=== PATIENT | male | born 1985 ===

== ENCOUNTER 2020-06-30 11:08 | Emergency (ER) | payer MEDICAID, SELFPAY ==
[2020-06-30 11:34] VITALS: BP 123/62; PULSE 80; RESP 18; TEMP 36.9; O2SAT 97; BMI 29.8
[2020-06-30 12:06] LABS: Glucose Urine UA NEG (NEG); Leukocyte Esterase Urine NEG (NEG); Nitrite Urine NEG (NEG); PH 8.5 (5.0-8.0); Urine Blood TRACE (NEG); Urine Ketones NEG (NEG); Urine Protein NEG (NEG-TRACE)
[2020-06-30] MEDS: Ibuprofen 600 MG TABLET PO (12:06)
[2020-06-30 12:07] LABS: Appearance Urine CLEAR; Color Urine YELLOW
--- NOTE | 2020-06-30 12:22 | ED.BACK ---
HPI - Back Pain/Injury General Chief Complaint: Back Pain/Injury Stated Complaint: BACK PAIN Time Seen by Provider: 06/30/20 11:32 Source: patient Mode of arrival: ambulatory Limitations: no limitations History of Present Illness HPI Narrative: 35-year-old male here with left lower back pain times several days. No injury or trauma. Pain radiates to the left hip. No numbness or tingling. No saddle anesthesia. No bowel or bladder incontinence. No fevers or chills. The patient is ambulatory. Pain is worsened with movement and standing. MD elicited complaint: back pain Related Data Previous Rx's Medication Instructions Recorded cyclobenzaprine 10 mg PO TID PRN #10 tab 06/30/20 lidocaine [Lidoderm] 1 patch TOPICAL DAILY #15 ea 06/30/20 naproxen 500 mg PO BID PRN #20 tab 06/30/20 Allergies Allergy/AdvReac Type Severity Reaction Status Date / Time No Known Allergies Allergy Verified 06/30/20 11:37 Review of Systems Review of Systems: Yes all other systems are reviewed and are negative Constitutional: Constitutional: Reports no additional constitutional complaints, Denies body ache(s), Denies chills, Denies fever(s), Denies headache(s) and Denies weakness Eyes: Eyes: Reports no additional eye complaints and Denies change in vision ENT: Reports system reviewed and no additional complaints, except as documented, Denies dizziness, Denies headache(s), Denies nasal congestion, Denies nasal discharge and Denies neck pain Cardiovascular: Cardiovascular: Reports no additional cardiovascular complaints, Denies chest pain, Denies leg edema and Denies dyspnea Respiratory: Respiratory: Reports no additional respiratory complaints, Denies cough and Denies dyspnea Gastrointestinal: Gastrointestinal: Reports no additional gastrointestinal complaints, Denies abdominal pain, Denies diarrhea, Denies nausea and Denies vomiting Genitourinary: Genitourinary: Denies urinary incontinence Musculoskeletal: Musculoskeletal: Reports no additional musculoskeletal complaints, Reports back pain, Denies arthralgias, Denies joint swelling, Denies neck pain, Denies numbness and Denies tingling Integumentary/Breasts: Skin/Breast: Reports system reviewed and no additional complaints, except as docu and Denies rash Neurologic: Reports system reviewed and no additional complaints, except as documented, Denies Abnormal speech present, Denies dizziness, Denies headache(s), Denies numbness, Denies tingling and Denies weakness PMFSH Past Medical History Attestation statement: The following information was validated with the patient. Source: old records reviewed and nursing notes reviewed Medical History No known health problems Social History Social History Advance Directives: No Advance Directives Information Provided: No Physical Exam Vital Signs: Vital Signs: Last Vital Signs Temp 98.4 F 06/30/20 11:34 Pulse 80 06/30/20 11:34 Resp 18 06/30/20 11:34 BP 123/62 06/30/20 11:34 Pulse Ox 97 06/30/20 11:34 Body Mass Index 29.8 Const: General: cooperative, healthy appearing, comfortable and no acute distress Orientation/consciousness: patient oriented x3 Limitations: no limitations HENMT: Head: Yes normal to inspection Ears: hearing grossly normal bilaterally General nose exam: Normal external nose present Face and sinus: Yes normal facial exam Mouth: Normal oral and palatal mucosa present Throat: Yes posterior oropharynx normal Eyes: General: appearance normal, both eyes and all related structures Pupils: Equal, round and reactive pupils present Neck: Neck: Yes normal visual inspection Chest: Chest palpation & inspection: normal inspection of the chest Resp: Effort & Inspection: normal respiratory effort Auscultation: clear to auscultation bilaterally Cardio: Rate: regular rate Rhythm: regular rhythm Peripheral pulses: Peripheral pulses 2+ throughout GI: Inspection: Yes normal to inspection Palpation (GI): Soft to palpation and nontender Auscultation: normal bowel sounds : General: Yes no CVA tenderness Back/Spine/Pelvis: Other: Moderate tenderness over lumbar soft tissue area with no midline tenderness, step-offs or deformities. Back: no CVA tenderness Thoracic/Lumbar Spine: thoracic and lumbar spine normal to inspection Sacroiliac joints: on the left (Mildly tender) Skin: General skin exam: no rashes or lesions noted Neuro: General: patient oriented x3, no focal motor deficits and normal sensation to monofilament Cranial nerves: Yes Equal, round and reactive pupils present Cognition (Neuro): normal cognition Speech: No Abnormal speech present Gait exam (Neuro): Normal gait present Motor exam (neuro): 5/5 motor strength present throughout Extrem: General: Yes normal to inspection Course Course Course Narrative: 35 yo male here with left lower back pain, atraumatic x several days. UA unremarkable. Likely lumbar strain versus sacroilitis. No neurological deficits. No red flag symptoms. Improved with NSAIDs in the emergency department. Will send home with supportive care, follow up with primary care doctor if no improvement in symptoms after several days. Reviewed worrisome signs and symptoms of when to return to the emergency department. Comfortable discharge home. MDM - Back Pain/Injury Medical Records Attestation: I reviewed the patient's medical records. Lab Data Attestation: I reviewed the patient's lab results. Labs: Lab Results 06/30/20 Range/Units 11:51 Urine Color YELLOW Urine Appearance CLEAR Urine pH 8.5 H (5.0-8.0) Ur Specific [place] 1.020 (1.005-1.025) Urine Protein NEG (NEG-TRACE) MG/DL Urine Glucose (UA) NEG (NEG) MG/DL Urine Ketones NEG (NEG) MG/DL Urine Blood TRACE (NEG) Urine Nitrite NEG (NEG) Ur Leukocyte Esterase NEG (NEG) Urine RBC 1-4 (0) /HPF Urine WBC 0 (0-4) /HPF Ur Squamous Epith Cells NONE /LPF Urine Bacteria NONE /LPF Discharge Plan Discharge Clinical Impression: Strain of lumbar region Patient Disposition: Home, Self-Care Instructions: Low Back Strain (ED), Lower Back Exercises (ED) Additional Instructions: Heat or ice Gentle stretching No heavy lifting or bending Prescriptions: New naproxen 500 mg tablet 500 mg PO BID PRN (Reason: pain) Qty: 20 RF: 0 cyclobenzaprine 10 mg tablet 10 mg PO TID PRN (Reason: muscle spasm) Qty: 10 RF: 0 lidocaine [Lidoderm] 5 % adhesive patch,medicated 1 patch topical DAILY Qty: 15 RF: 0 Referrals: Vinicius Shell MD [Primary Care Provider] - 2 days Stand Alone Forms: Work/School Release Interventions: ED Discharge Assessment Last Done: 06/30/20 13:17 Discharge Date/Time: 06/30/20 13:17
[2020-06-30 12:34] LABS: WBC Urine 0 /HPF (0-4)
== END 2020-06-30 13:17 | disposition home or self-care (01) ==
PROVIDERS: Nurse Practitioner Family; Emergency Provider Emergency Medicine Emergency Medical Services; PCP Internal Medicine
DX: S39.012A Strain of muscle, fascia and tendon of lower back, initial encounter (principal); X58.XXXA Exposure to other specified factors, initial encounter; Y93.9 Activity, unspecified; Y92.9 Unspecified place or not applicable; Y99.9 Unspecified external cause status
CPT/HCPCS: 81001; 81003; 99283; J1885

== ENCOUNTER 2020-10-03 09:20 | Emergency (ER) | payer MEDICAID, SELFPAY ==
[2020-10-03 09:38] VITALS: BP 129/79; PULSE 101; RESP 16; TEMP 36.9; O2SAT 96; BMI 30.7
--- NOTE | 2020-10-03 10:17 | ED.URI ---
HPI - URI/Sore Throat General Chief Complaint: Upper Respiratory Symptoms <MARCOS West Last Filed: 10/03/20 10:22> Stated Complaint: SORE THROAT <MARCOS West Last Filed: 10/03/20 10:22> Time Seen by Provider: 10/03/20 09:37 <MARCOS West Last Filed: 10/03/20 10:22> Source: patient <MARCOS West Last Filed: 10/03/20 10:22> Mode of arrival: ambulatory <MARCOS West Last Filed: 10/03/20 10:22> History of Present Illness HPI Narrative: 35-year-old male with no significant past medical history presenting to the ED complaining of sore throat, painful swallowing, subjective fever, nausea, headache since yesterday. Admits symptoms feels similar to prior strep pharyngitis. Denies ear pain, cough, chest pain or shortness of breath, abdominal pain, recent travel, sick contacts <MARCOS West Last Filed: 10/03/20 10:22> MD elicited complaint: sore throat <MARCOS West Last Filed: 10/03/20 10:22> Related Data Home Medications: Previous Rx's Medication Instructions Recorded cyclobenzaprine 10 mg PO TID PRN #10 tab 06/30/20 lidocaine [Lidoderm] 1 patch TOPICAL DAILY #15 ea 06/30/20 naproxen 500 mg PO BID PRN #20 tab 06/30/20 amoxicillin-pot clavulanate 1 tab PO Q12H 7 Days #14 tab 10/03/20 [Augmentin] <MARCOS West Last Filed: 10/03/20 10:22> Allergies/Adverse Reactions: Allergies Allergy/AdvReac Type Severity Reaction Status Date / Time No Known Allergies Allergy Verified 06/30/20 11:37 <MARCOS West Last Filed: 10/03/20 10:22> Review of Systems Review of Systems: Constitutional: +subj Fever, No Chills ENT/Mouth: No Ear Pain, No Nasal Congestion, No Sinus Pain, No Hoarseness, + sore throat, No Rhinorrhea, No Swallowing Difficulty Cardiovascular: No Chest Pain, No SOB Respiratory: No Cough, No Sputum, No Wheezing Gastrointestinal: + Nausea, No Vomiting, No Diarrhea, No Abdominal pain Musculoskeletal: No joint pain, No Myalgias, No Joint Swelling Skin: No Skin Lesions, No rash Neuro: No Weakness, + headache <MARCOS West - Last Filed: 10/03/20 10:22> Yes all other systems are reviewed and are negative <MARCOS West - Last Filed: 10/03/20 10:22> [facility] Past Medical History Attestation statement: The following information was validated with the patient. <MARCOS West - Last Filed: 10/03/20 10:22> Medical History: Medical History (Updated 10/04/20 @ 00:02 by Shima Lozano) No known health problems <MARCOS West - Last Filed: 10/03/20 10:22> Surgical History: Surgical History (Updated 10/03/20 @ 09:40 by Jeanie Colby) H/O shoulder surgery <MARCOS West - Last Filed: 10/03/20 10:22> Social History Social History: Social History Smoked in Last 30 Days: No Use of substances other than those prescribed or required for medical reasons: No Advance Directives: No Advance Directives Information Provided: No <MARCOS West - Last Filed: 10/03/20 10:22> Physical Exam Vital Signs: Vital Signs: Last Vital Signs Temp 98.5 F 10/03/20 09:38 Pulse 101 H 10/03/20 09:38 Resp 16 10/03/20 09:38 BP 129/79 10/03/20 09:38 Pulse Ox 96 10/03/20 09:38 Body Mass Index 30.7 <MARCOS West - Last Filed: 10/03/20 10:22> Vital Signs: Last Vital Signs Temp 98.5 F 10/03/20 09:38 Pulse 101 H 10/03/20 09:38 Resp 16 10/03/20 09:38 BP 129/79 10/03/20 09:38 Pulse Ox 96 10/03/20 09:38 Body Mass Index 30.7 <Richi Allison MD - Last Filed: 10/27/20 15:12> Const: General: cooperative, healthy appearing, comfortable and no acute distress <MARCOS West - Last Filed: 10/03/20 10:22> Orientation/consciousness: patient oriented x3 <MARCOS West - Last Filed: 10/03/20 10:22> Limitations: no limitations <MARCOS West - Last Filed: 10/03/20 10:22> HENMT: Head: Yes normal to inspection and Yes atraumatic <MARCOS West - Last Filed: 10/03/20 10:22> Ears: hearing grossly normal bilaterally, external ears normal and TM's normal bilaterally <Lexus Casiano HI - Last Filed: 10/03/20 10:22> General nose exam: Normal external nose present and Normal nares present <Lexus Casiano HI - Last Filed: 10/03/20 10:22> Face and sinus: Yes normal facial exam <MARCOS West Last Filed: 10/03/20 10:22> Mouth: Normal oral and palatal mucosa present <MARCOS West - Last Filed: 10/03/20 10:22> Throat: Yes uvula midline, Yes abnormal tonsil (Bilateral tonsillar erythema, swelling and exudates), No peritonsillar mass, No uvula laterally displaced and No uvular edema <Lexus Casiano HI - Last Filed: 10/03/20 10:22> Eyes: General: appearance normal, both eyes and all related structures <MARCOS West - Last Filed: 10/03/20 10:22> EOM: EOMs intact bilaterally <MARCOS West - Last Filed: 10/03/20 10:22> Neck: Neck: Yes normal visual inspection, Yes no meningeal signs, Yes supple, No anterior neck swelling and Yes lymphadenopathy <Lexus Casiano HI - Last Filed: 10/03/20 10:22> Resp: Effort & Inspection: normal respiratory effort, not labored, no nasal flaring, no stridor and not tachypneic <MARCOS West - Last Filed: 10/03/20 10:22> Cardio: Rate: regular rate <MARCOS West - Last Filed: 10/03/20 10:22> Skin: Rashes: no rashes <MARCOS West - Last Filed: 10/03/20 10:22> Wounds: no wounds <MARCOS West - Last Filed: 10/03/20 10:22> Neuro: General: patient oriented x3 and no meningeal signs <MARCOS West - Last Filed: 10/03/20 10:22> Gait exam (Neuro): Normal gait present <MARCOS West - Last Filed: 10/03/20 10:22> Extrem: General: Yes normal to inspection <MARCOS West - Last Filed: 10/03/20 10:22> Course Course Course Narrative: I have reviewed the chart <Richi Allison MD - Last Filed: 10/27/20 15:12> MDM - URI/Sore Throat MDM Narrative Medical decision making narrative: On exam mildly tachycardic with heart rate of 101, NAD/nontoxic appearing, physical exam consistent with strep pharyngitis, patient in no respiratory distress evidence of [employer]. <MARCOS West - Last Filed: 10/03/20 10:22> Lab Data Labs: Lab Results 10/03/20 Range/Units 10:14 S. pyogenes GrpA SCOTTY Negative (Negative) <MARCOS West - Last Filed: 10/03/20 10:22> Lab Results 10/03/20 Range/Units 10:14 S. pyogenes GrpA SCOTTY Negative (Negative) <Richi Allison MD - Last Filed: 10/27/20 15:12> Discharge Plan Discharge Clinical Impression: Acute streptococcal pharyngitis <MARCOS West - Last Filed: 10/03/20 10:22> Patient Disposition: Home, Self-Care <MARCOS West - Last Filed: 10/03/20 10:22> Instructions: Strep Throat (ED) <MARCOS West - Last Filed: 10/03/20 10:22> Additional Instructions: You have strep throat, Augmentin is an antibiotic, take as prescribed Take Tylenol Motrin at home for pain/swelling and fever If her symptoms persist or worsen, your unable to eat or drink/swallow, or fevers unresolved with Tylenol/Motrin please return to the ED Follow-up with her doctor <MARCOS West - Last Filed: 10/03/20 10:22> Prescriptions: New amoxicillin-pot clavulanate [Augmentin] 875-125 mg tablet 1 tab PO Q12H 7 Days Qty: 14 RF: 0 No Action naproxen 500 mg tablet 500 mg PO BID PRN (Reason: pain) Qty: 20 RF: 0 cyclobenzaprine 10 mg tablet 10 mg PO TID PRN (Reason: muscle spasm) Qty: 10 RF: 0 lidocaine [Lidoderm] 5 % adhesive patch,medicated 1 patch topical DAILY Qty: 15 RF: 0 <MARCOS West - Last Filed: 10/03/20 10:22> Referrals: Vinicius Shell MD [Primary Care Provider] - 1 week <MARCOS West - Last Filed: 10/03/20 10:22> Stand Alone Forms: Work/School Release <MARCOS West - Last Filed: 10/03/20 10:22> Interventions: ED Discharge Assessment Last Done: 10/03/20 10:49 <MARCOS West - Last Filed: 10/03/20 10:22> Discharge Date/Time: 10/03/20 10:49 <MARCOS West - Last Filed: 10/03/20 10:22>
[2020-10-03 10:40] LABS: IDNOW Serial# 9DD0AD1C; Strep A Nucleic Acid Negative (Negative)
== END 2020-10-03 10:49 | disposition home or self-care (01) ==
PROVIDERS: Physician Assistant; Emergency Provider Emergency Medicine; PCP Internal Medicine
DX: J02.0 Streptococcal pharyngitis (principal); R00.0 Tachycardia, unspecified
CPT/HCPCS: 36415; 87651; 99283

== ENCOUNTER 2021-01-18 16:55 | Emergency (ER) | payer MEDICAID, SELFPAY ==
--- NOTE | ~2021-01-18 | XR_ITS ---
EXAMINATION: XR HAND, LEFT CLINICAL INFORMATION: Pain COMPARISON: None TECHNIQUE: PA, lateral, and oblique views of the left hand. FINDINGS: There is minimal soft tissue calcification seen at the second digit metacarpophalangeal joint. No fracture or dislocation. Alignment is anatomic. Joint spaces are maintained. The soft tissues appear otherwise unremarkable. XR/XR hand LT min 3V IMPRESSION: No acute osseous abnormality. Minimal soft tissue calcification adjacent to the second digit metacarpophalangeal joint. This is of uncertain clinical significance.
[2021-01-18 17:32] VITALS: BP 118/73; PULSE 65; RESP 18; TEMP 36.7; O2SAT 98; BMI 29.8
--- NOTE | 2021-01-18 18:21 | ED_ITS ---
HPI - Extremity Problem General Chief complaint: Extremity Injury, Upper Stated complaint: finger pain Time Seen by Provider: 01/18/21 18:21 Source: patient Mode of arrival: ambulatory Limitations: no limitations History of Present Illness HPI Narrative: Patient been having pain in flexing left index finger for last 1 week since no history of trauma no swelling no fever Related Data Previous Rx's Medication Instructions Recorded cyclobenzaprine 10 mg tablet 10 mg PO TID PRN #10 tab 06/30/20 lidocaine 5 % topical patch 1 patch TOPICAL DAILY #15 ea 06/30/20 (Lidoderm) naproxen 500 mg tablet 500 mg PO BID PRN #20 tab 06/30/20 amoxicillin 875 mg-potassium 1 tab PO Q12H 7 Days #14 tab 10/03/20 clavulanate 125 mg tablet (Augmentin) Allergies Allergy/AdvReac Type Severity Reaction Status Date / Time No Known Allergies Allergy Verified 06/30/20 11:37 Review of Systems Review of Systems: Yes all other systems are reviewed and are negative [facility] Past Medical History Medical History Collar bone fracture Surgical History H/O shoulder surgery Social History Social History Advance Directives: No Advance Directives Information Provided: No Physical Exam Vital Signs: Vital Signs: Last Vital Signs Temp 98.1 F 01/18/21 17:32 Pulse 65 01/18/21 17:32 Resp 18 01/18/21 17:32 BP 118/73 01/18/21 17:32 Pulse Ox 98 01/18/21 17:32 Body Mass Index 29.8 Extrem: Hand/finger images: 1. Tenderness at metacarpophalangeal joint official inflection no swelling noticed MDM - Extremity (Nontraumatic) MDM Narrative Medical decision making narrative: X-ray negative for any pathology clinically patient had trigger finger left index finger advised to have splint patient left the ER without taking the splint or discharge paper Discharge Plan Discharge Clinical Impression: Trigger finger Qualifiers: Trigger finger location: index finger Laterality: left Qualified Code(s): M65.322 - Trigger finger, left index finger Patient Disposition: Home, Self-Care Instructions: Trigger Finger (ED) Additional Instructions: Wear the splint as advised Ibuprofen for pain Prescriptions: No Action naproxen 500 mg tablet 500 mg PO BID PRN (Reason: pain) Qty: 20 RF: 0 cyclobenzaprine 10 mg tablet 10 mg PO TID PRN (Reason: muscle spasm) Qty: 10 RF: 0 lidocaine [Lidoderm] 5 % adhesive patch,medicated 1 patch topical DAILY Qty: 15 RF: 0 amoxicillin-pot clavulanate [Augmentin] 875-125 mg tablet 1 tab PO Q12H 7 Days Qty: 14 RF: 0
== END 2021-01-18 19:14 | disposition home or self-care (01) ==
PROVIDERS: Emergency Provider Internal Medicine
DX: M65.322 Trigger finger, left index finger (principal); M79.645 Pain in left finger(s); Z79.899 Other long term (current) drug therapy
CPT/HCPCS: 73130; 99283

== ENCOUNTER 2021-11-19 12:54 | Emergency (ER) | payer MEDICAID, SELFPAY ==
[2021-11-19 15:23] VITALS: BP 125/59; PULSE 62; RESP 16; TEMP 36.9; O2SAT 99; BMI 25.8
[2021-11-19 15:58] LABS: Strep A Nucleic Acid Negative (Negative)
--- NOTE | 2021-11-19 16:10 | ED.GENADULT ---
HPI - General Adult General Chief complaint: General Medical Stated complaint: sore throat Time Seen by Provider: 11/19/21 14:48 Source: patient Mode of arrival: ambulatory Limitations: no limitations History of Present Illness HPI narrative: Patient is a 36 year old male presenting to the emergency department today with a sore throat. Patient states that he has been having 3 days of a sore throat and pain on the roof of his mouth. Patient denies any dizziness, lightheadedness, abdominal pain, nausea, vomiting, fever, chills, blurry vision, double vision, loss of vision, chest pain, difficulty breathing, shortness of breath, back pain, night sweats, pain with urination, increased urinary frequency, increased urinary urgency, blood in his urine or stool, syncope or a near syncopal episode, recent trauma or falls, bowel incontinence, bladder incontinence, bowel retention, bladder retention, or any other complaints at this time. Onset (ago): day(s) (3) Radiation: non-radiation Severity: mild Severity scale (1-10): 3 Quality: dull Relieving factors: none Exacerbating factors: none Associated symptoms: denies other symptoms Treatments prior to arrival: none Related Data Previous Rx's Medication Instructions Recorded cyclobenzaprine 10 mg tablet 10 mg PO TID PRN muscle spasm #10 06/30/20 tabs lidocaine 5 % topical patch 1 patch topical DAILY #15 ea 06/30/20 (Lidoderm) naproxen 500 mg tablet 500 mg PO BID PRN pain #20 tabs 06/30/20 amoxicillin 875 mg-potassium 1 tab PO Q12H 7 days #14 tabs 10/03/20 clavulanate 125 mg tablet (Augmentin) lidocaine HCl 2 % mucosal solution 1.25 ml mucous membrane TID PRN 11/19/21 (Lidocaine Viscous) pain #100 mL penicillin V potassium 500 mg 500 mg PO BID 10 days #20 tabs 11/19/21 tablet Allergies Allergy/AdvReac Type Severity Reaction Status Date / Time No Known Allergies Allergy Verified 11/19/21 15:23 Review of Systems Constitutional: Constitutional: Reports no additional constitutional complaints, Denies chills, Denies fever(s) and Denies night sweats Eyes: Eyes: Reports no additional eye complaints, Denies blurry vision, Denies change in vision, Denies diplopia, Denies eye discharge, Denies loss of vision and Denies eye pain ENT: Denies dizziness and Reports sore throat Cardiovascular: Cardiovascular: Reports no additional cardiovascular complaints, Denies chest pain, Denies lightheadedness, Denies Loss of Consciousness and Denies dyspnea Respiratory: Respiratory: Reports no additional respiratory complaints and Denies dyspnea Gastrointestinal: Gastrointestinal: Reports no additional gastrointestinal complaints, Denies abdominal pain, Denies melena, Denies hematochezia, Denies change in bowel habits and Denies change in stool character Genitourinary: Genitourinary: Reports no additional male genitourinary complaints, Denies hematuria, Denies oliguria, Denies difficulty urinating, Denies dysuria, Denies urinary frequency, Denies urinary hesitancy, Denies urinary incontinence and Denies urinary urgency Musculoskeletal: Musculoskeletal: Reports no additional musculoskeletal complaints, Denies numbness and Denies tingling Neurologic: Denies dizziness, Denies loss of vision, Denies numbness and Denies tingling Psychiatric: Psychiatric: Reports no additional psychiatric complaints Endocrine: Endocrine: Reports no additional endocrine complaints Hematologic/Lymphatic: Hematologic/Lymphatic: Reports no additional hematologic/lymphatic complaints Allergic/Immunologic: Allergic/Immunologic: Reports no additional allergic/immunologic complaints PMFSH Past Medical History Attestation statement: The following information was validated with the patient. Source: old records reviewed Medical History Collar bone fracture Surgical History H/O shoulder surgery Social History Social History Advance Directives: No Advance Directives Information Provided: No Physical Exam ED Vital Signs: Vital Signs - 24 hr 11/19/21 15:23 Temperature 98.5 F Pulse Rate 62 Respiratory Rate 16 Blood Pressure 125/59 L Pulse Oximetry 99 Oxygen Delivery Method Room Air BMI result Body Mass Index 25.8 Const General: cooperative, no acute distress, alert and awake Nutritional Appearance: well nourished Orientation/consciousness: patient oriented x3 Limitations: no limitations HENMT Head: Yes normal to inspection and Yes atraumatic Ears: hearing grossly normal bilaterally and external ears normal General nose exam: Normal external nose present, no nasal discharge noted and no epistaxis Face and sinus: Yes normal facial exam, No abrasion and No laceration Mouth: Normal oral and palatal mucosa present, no drooling and no muffled voice Throat: Yes other (posterior erythema) Eyes General: appearance normal, both eyes and all related structures Periorbital: periorbital findings normal Eyelids: Yes eyelids normal Conjunctivae: conjunctivae normal Pupils: Equal, round and reactive pupils present EOM: EOMs intact bilaterally Neck Neck: Yes normal visual inspection, Yes full ROM and Yes no lymphadenopathy Chest Chest palpation & inspection: normal inspection of the chest Resp Effort & Inspection: normal respiratory effort and able to speak in complete sentences Auscultation: clear to auscultation bilaterally Cardio Rate: regular rate Rhythm: regular rhythm GI Inspection: Yes normal to inspection Neuro General: patient oriented x3 and moves all extremities Cranial nerves: Yes Equal, round and reactive pupils present Cognition (Neuro): normal cognition Motor exam (neuro): 5/5 motor strength present throughout Sensory Exam: Normal double simultaneous stimulation for sensation Coordination: [id number] test normal Extrem General: Yes normal to inspection, Yes full ROM and Yes capillary refill normal Psych Appearance: grossly normal Mental Status: mental status grossly normal Affect: normal affect Attitude: cooperative Thought process: Normal thought process present Thought content: Normal thought content present Insight: Good insight present (Psych) Medical Decision Making MDM Narrative Medical decision making narrative: Patient is a 36 year old male presenting to the emergency department today with a sore throat. Patient's physical exam showed posterior pharyngeal erythema but was otherwise unremarkable. Patient's rapid strep, COVID-19 and influenza swabs were negative. I explained my physical exam findings as well as all test results to the patient. I answered all questions asked by the patient. I stressed the importance of the patient taking his medication as prescribed. I stressed the importance of the patient following up with his/her primary care provider. I stressed the importance of the patient returning to the emergency department immediately if his symptoms were to worsen or if he were to develop any dizziness, shortness of breath, difficulty breathing, chest pain, blurry vision, loss of vision, nausea, vomiting, abdominal pain, fever, chills, back pain, or any other complaints. Patient verbalized agreement and understanding with this treatment plan and discharge. Differential Diagnosis Differential Diagnosis: sore throat Medical Records Medical records reviewed: Yes I reviewed the patient's medical records. Lab Data Lab results reviewed: Yes I reviewed the patient's lab results. Labs: Lab Results 11/19/21 11/19/21 11/19/21 Range/Units 15:37 15:37 15:37 COVID-19 (MYRA) Negative (Negative) COVID-19 Clin Com See Note Influenza Type A (SCOTTY) Negative (Negative) Influenza Type B (SCOTTY) Negative (Negative) Influenza A & B Note See Note S. pyogenes GrpA SCOTTY Negative (Negative) Discharge Plan Discharge Clinical Impression: Pharyngitis Patient Disposition: Home, Self-Care Instructions: Pharyngitis (ED) Additional Instructions: Follow up with your primary care provider. Return to the emergency department immediately if your symptoms worsen or if you develop any dizziness, shortness of breath, difficulty breathing, chest pain, blurry vision, loss of vision, nausea, vomiting, abdominal pain, fever, chills, back pain, or any other complaints. Prescriptions: New penicillin V potassium 500 mg tablet 500 mg PO BID 10 Days Qty: 20 0RF lidocaine HCl [Lidocaine Viscous] 2 % solution 1.25 ml mucous membrane TID PRN (Reason: pain) Qty: 100 0RF Rx Instructions: Swish around in mouth, spit out. No Action naproxen 500 mg tablet 500 mg PO BID PRN (Reason: pain) Qty: 20 0RF cyclobenzaprine 10 mg tablet 10 mg PO TID PRN (Reason: muscle spasm) Qty: 10 0RF lidocaine [Lidoderm] 5 % adhesive patch,medicated 1 patch topical DAILY Qty: 15 0RF Rx Instructions: leave on most painful area for up to 12 hrs amoxicillin-pot clavulanate [Augmentin] 875-125 mg tablet 1 tab PO Q12H 7 Days Qty: 14 0RF Referrals: Vinicius Shell MD [Primary Care Provider] - Print Language: Romanian
[2021-11-19 16:27] LABS: COVID-19 Test Negative (Negative); IDNOW Serial# 16C4AD1C; Influenza A Negative (Negative); Influenza B2 Negative (Negative)
== END 2021-11-19 23:27 | disposition home or self-care (01) ==
PROVIDERS: Emergency Medicine; Emergency Provider Internal Medicine; PCP Internal Medicine
DX: J02.9 Acute pharyngitis, unspecified (principal); Z20.822 Contact with and (suspected) exposure to COVID-19
CPT/HCPCS: 87502; 87635; 87651; 99281; 99283

== ENCOUNTER 2022-04-07 11:07 | Emergency (ER) | payer MEDICAID, SELFPAY ==
--- NOTE | ~2022-04-07 | XR_ITS ---
EXAMINATION: XR ANKLE, RIGHT CLINICAL INFORMATION: Injury, medial and lateral swelling. Pain. COMPARISON: None TECHNIQUE: AP, lateral, and mortise views of the right ankle. FINDINGS: Medial and lateral ankle soft tissue swelling. There is medial malleolar fracture, with multiple displaced osseous fragments distal to the malleolus. There appears to be osseous fragments along the medial aspect of the medial malleolus as well. There are multiple ossifications seen along the posterior malleolus and the posterior aspect the tibiotalar joint. A posterior malleolar fracture cannot be excluded. Small ossific fragments adjacent the lateral malleolus, raise concern for fracture fragments, of indeterminate age. Talar dome appears intact. Anterior calcaneus process, fifth metatarsal base appears intact. XR/XR ankle RT min 3V IMPRESSION: Medial malleolar fracture, with multiple displaced osseous fragments. Small ossifications adjacent the lateral malleolus raises concern for sequela of fracture, of indeterminate age. Ossifications adjacent to the posterior malleolus of the tibia, raise the possibility of a posterior malleolar fracture. Ossifications along the posterior aspect of the tibiotalar joint, could represent displaced fracture fragments versus loose bodies. Further evaluation with cross-sectional imaging as clinically warranted..
[2022-04-07 11:35] VITALS: BP 119/86; PULSE 66; RESP 16; TEMP 37; O2SAT 98; BMI 25.8
[2022-04-07] MEDS: oxyCODONE HCl Immed Release 5 MG TABLET PO (11:52)
[2022-04-07] MEDS: Ibuprofen 600 MG TABLET PO (11:52)
--- NOTE | 2022-04-07 11:58 | ED.LOWEXIN ---
HPI - Extremity Injury (Lower) General Chief Complaint: Extremity Injury, Lower Stated Complaint: Right foot inj Time Seen by Provider: 04/07/22 11:31 Source: patient Mode of arrival: other (crutches) Limitations: no limitations History of Present Illness HPI Narrative: 36 yo male presenting with right ankle pain and swelling after an injury on 04/05. Patient was working on a car that was on a ramp when the car started to slide back, he tried to stop it with his right leg and his right ankle hyperflexed under leg and he heard a pop noise. He thought he sprained his ankle because he had immediate pain and swelling. He has been wrapping and [place] and using crutches. He is unable to bear any weight. He reports pain with any range of motion of the ankle and foot. He denies any numbness or tingling. He reports dependent bruising at the base of his heel and ongoing swelling. No other injuries. MD complaint: ankle injury Onset (ago): day(s) (3) Injury: Right: ankle Type of Injury: hyperflexion Place: work Severity: severe Severity scale (1-10): 8 Relieving factors: immobilization Exacerbating factors: weight bearing, movement and palpation Associated symptoms: snap/pop sensation and unable to bear weight Other symptoms: none Treatments prior to arrival: bandage Related Data Previous Rx's Medication Instructions Recorded cyclobenzaprine 10 mg tablet 10 mg PO TID PRN muscle spasm #10 06/30/20 tabs lidocaine 5 % topical patch 1 patch topical DAILY #15 ea 06/30/20 (Lidoderm) naproxen 500 mg tablet 500 mg PO BID PRN pain #20 tabs 06/30/20 amoxicillin 875 mg-potassium 1 tab PO Q12H 7 days #14 tabs 10/03/20 clavulanate 125 mg tablet (Augmentin) lidocaine HCl 2 % mucosal solution 1.25 ml mucous membrane TID PRN 11/19/21 (Lidocaine Viscous) pain #100 mL penicillin V potassium 500 mg 500 mg PO BID 10 days #20 tabs 11/19/21 tablet oxycodone 5 mg tablet 5 mg PO Q6H PRN severe pain (scale 04/07/22 score 7-10) #10 tabs Allergies Allergy/AdvReac Type Severity Reaction Status Date / Time No Known Allergies Allergy Verified 11/19/21 15:23 Review of Systems Review of Systems: Constitutional: No Fever, No Chills Cardiovascular: No Chest Pain, No SOB, + Edema Respiratory: No Cough, No Sputum, No Wheezing, No dyspnea Gastrointestinal: No Nausea, No Vomiting, No Diarrhea, No abdominal Pain Musculoskeletal: +joint pain, + Myalgias Skin: No Skin Lesions, No rash Neuro: No Weakness, No Numbness, No Headache Psych: No Anxiety/Panic, No Depression Heme/Lymph: + Bruising, No Lymphadenopathy PMFSH Past Medical History Medical History Collar bone fracture Surgical History H/O shoulder surgery Social History Social History Advance Directives: No Advance Directives Information Provided: No Physical Exam Vital Signs: Vital Signs: Last Vital Signs Temp 98.6 F 04/07/22 11:35 Pulse 66 04/07/22 11:35 Resp 16 04/07/22 11:35 BP 119/86 04/07/22 11:35 Pulse Ox 98 04/07/22 11:35 O2 Del Method 04/07/22 11:35 BMI result Body Mass Index 25.8 Appearance: Alert. Oriented X3. No acute distress. HEENT: normal inspection CVS: Normal heart rate and rhythm. Pulses normal. Respiratory: No respiratory distress. Skin: Skin warm and dry. Normal skin color. Normal skin turgor. No rashes. Extremities: Right ankle with diffuse, moderate swelling bilaterally with dependent ecchymosis at the base of calcaneus. Tenderness throughout the ankle with pain with plantar flexion and dorsiflexion. Foot is warm and well perfused, neurovascularly intact distally. Neuro: Oriented X 3. No motor deficit. No sensory deficit. Gait not tested due to pain Course Course Course Narrative: 36-year-old male presents to the ER for evaluation of right ankle pain and swelling after a hyperflexion injury at work 3 days ago. Clinical presentation and examination are concerning for acute fracture. X-rays are pending. Pain meds ordered. Reevaluation(s) Reevaluation #1: XR showing - Medial malleolar fracture, with multiple displaced osseous fragments. ? Small ossifications adjacent the lateral malleolus raises concern for sequela of fracture, of indeterminate age. ? Ossifications adjacent to the posterior malleolus of the tibia, raise the possibility of a posterior malleolar fracture. ? Ossifications along the posterior aspect of the tibiotalar joint, could represent displaced fracture fragments versus loose bodies. ? Further evaluation with cross-sectional imaging as clinically warranted. Results discussed with Pamela from Orthopedics. Need for surgery to be determined on evaluation in the office. Will place a splint and discharged pain control plan to follow-up with ortho. Patient agrees with plan. Reevaluation #2: Splint placed by nurse in adequate position. Patient is comfortable. We again discussed the results of his x-ray and need for follow-up with Ortho. Patient agrees with plan. Stable for discharge home. Medications Administered Discontinued Medications Generic Name Dose Route Start Last Admin Trade Name Freq PRN Reason Stop Dose Admin Ibuprofen 600 mg 04/07/22 11:38 04/07/22 11:52 Ibuprofen 600 Mg Tablet PO 04/07/22 11:39 600 mg ONCE ONE Administration Oxycodone HCl 5 mg 04/07/22 11:38 04/07/22 11:52 Oxycodone Hcl Immed Release 5 Mg Tablet PO 04/07/22 11:39 5 mg ONCE ONE Administration Critical Care Time Critical Care Time Critical Care Time: No Discharge Plan Discharge Clinical Impression: Ankle fracture Patient Disposition: Home, Self-Care Instructions: Ankle Fracture (ED) Additional Instructions: Your x-rays today showed : Medial malleolar fracture, with multiple displaced osseous fragments.? Small ossifications adjacent the lateral malleolus raises concern for sequela of fracture, of indeterminate age.? Ossifications adjacent to the posterior malleolus of the tibia, raise the possibility of a posterior malleolar fracture.? Ossifications along the posterior aspect of the tibiotalar joint, could represent displaced fracture fragments versus loose bodies.? Further evaluation with cross-sectional imaging as clinically warranted.. Wear the applied splint until you are further evaluated by Orthopedics. Call their office on Friday to arrange an appointment. Name and number below. Take the prescribed medications as needed for pain. Prescriptions: New oxycodone 5 mg tablet 5 mg PO Q6H PRN (Reason: severe pain (scale score 7-10)) Qty: 10 0RF Rx Instructions: Partial Fill upon patient request. No Action naproxen 500 mg tablet 500 mg PO BID PRN (Reason: pain) Qty: 20 0RF cyclobenzaprine 10 mg tablet 10 mg PO TID PRN (Reason: muscle spasm) Qty: 10 0RF lidocaine [Lidoderm] 5 % adhesive patch,medicated 1 patch topical DAILY Qty: 15 0RF Rx Instructions: leave on most painful area for up to 12 hrs amoxicillin-pot clavulanate [Augmentin] 875-125 mg tablet 1 tab PO Q12H 7 Days Qty: 14 0RF penicillin V potassium 500 mg tablet 500 mg PO BID 10 Days Qty: 20 0RF lidocaine HCl [Lidocaine Viscous] 2 % solution 1.25 ml mucous membrane TID PRN (Reason: pain) Qty: 100 0RF Rx Instructions: Swish around in mouth, spit out. Referrals: [facility] [place] [facility] [Provider Group] (Medial malleolar fracture, with multiple displaced osseous fragments. Small ossifications adjacent the lateral malleolus raises concern for sequela of fracture, of indeterminate age. Ossifications adjacent to the posterior malleolus of the tibia, raise the possibility of a posterior malleolar fracture. Ossifications along the posterior aspect of the tibiotalar joint, could represent displaced fracture fragments versus loose bodies. Further evaluation with cross-sectional imaging as clinically warranted..) Stand Alone Forms: Work/School Release
== END 2022-04-07 13:48 | disposition home or self-care (01) ==
PROVIDERS: Emergency Provider Emergency Medicine Emergency Medical Services; PCP Internal Medicine
DX: S82.891A Other fracture of right lower leg, initial encounter for closed fracture (principal); Y29.XXXA Contact with blunt object, undetermined intent, initial encounter; Y93.9 Activity, unspecified; Y92.9 Unspecified place or not applicable; Y99.0 Civilian activity done for income or pay; Z79.899 Other long term (current) drug therapy
CPT/HCPCS: 29515; 73610; 99283

== ENCOUNTER 2022-04-15 08:01 | Outpatient (REF) | payer MEDICAID, SELFPAY | END 2022-04-15 08:02 | disposition home or self-care (01) | LOC: HO.HOSX 08:01 | PROVIDERS: Visit Provider Physician Assistant | DX: Z13.89 Encounter for screening for other disorder (principal) ==

== ENCOUNTER 2022-04-19 07:32 | Outpatient (REF) | payer MEDICAID, SELFPAY ==
--- NOTE | ~2022-04-19 | XR_ITS ---
EXAMINATION: XR ANKLE, RIGHT CLINICAL INFORMATION: Pain in right ankle. COMPARISON: Right ankle series TECHNIQUE: AP, lateral, and mortise views of the right ankle. FINDINGS: Previously noted comminuted fracture of the medial malleolus is redemonstrated. Appearance of the fracture and alignment unchanged. No osseous bridging. Small well-corticated osseous fragments distal to the fibula compatible with ossicles, unchanged. Talocrural joint normally aligned, other than the malalignment related to the medial malleolar fracture along the medial clear space. Persistent slight prominence of the soft tissues laterally, but decreased compared to prior. XR/XR ankle RT min 3V IMPRESSION: Unchanged comminuted medial malleolar fracture.. No evidence of osseous bridging.
== END 2022-04-19 07:33 | disposition home or self-care (01) ==
LOC: HO.HOSX 07:32
PROVIDERS: Visit Provider Physician Assistant
DX: S82.51XA Displaced fracture of medial malleolus of right tibia, initial encounter for closed fracture (principal)
CPT/HCPCS: 73610; 99202

== ENCOUNTER 2022-05-06 11:23 | Outpatient (REF) | payer MEDICAID, SELFPAY | END 2022-05-06 11:24 | disposition home or self-care (01) | LOC: HO.HOSX 11:23 | PROVIDERS: Visit Provider Physician Assistant | DX: M25.571 Pain in right ankle and joints of right foot (principal) | CPT/HCPCS: 73610 ==

== ENCOUNTER 2022-06-03 13:28 | Outpatient (REF) | payer MEDICAID, SELFPAY | END 2022-06-03 13:29 | disposition home or self-care (01) | LOC: HO.HOSX 13:28 | PROVIDERS: Visit Provider Orthopaedic Surgery | DX: Z13.89 Encounter for screening for other disorder (principal) ==

== ENCOUNTER 2022-08-30 00:21 | Emergency (ER) | payer MEDICAID, SELFPAY ==
[2022-08-30 00:35] VITALS: BP 137/76; PULSE 93; RESP 22; TEMP 36.7; O2SAT 97; BMI 24.2
--- NOTE | 2022-08-30 00:41 | ED.BURNSMOKE ---
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 which accidentally spilled on his right dorsum of the foot involving the 2nd and 3rd toe came with ruptured blister no other injuries Related Data Home Medications Medication Instructions Recorded Confirmed ibuprofen 800 mg tablet 800 mg PO Q8H 04/21/22 04/21/22 Previous Rx's Medication Instructions Recorded ibuprofen 600 mg tablet 600 mg PO Q6H PRN pain #30 tabs 08/30/22 silver sulfadiazine 1 % topical 1 appl topical BID #50 grams 08/30/22 cream (Silvadene) Allergies Allergy/AdvReac Type Severity Reaction Status Date / Time No Known Allergies Allergy Verified 05/06/22 14:24 Review of Systems Review of Systems: Yes all other systems are reviewed and are negative [facility] Past Medical History Medical History Collar bone fracture Surgical History H/O shoulder surgery Social History Social History Patient Tobacco Use Status: Current everyday Tobacco user Advance Directives: No Advance Directives Information Provided: Yes Current occupational status: unemployed Physical Exam Vital Signs: Vital Signs: Last Vital Signs Temp 98.1 F 08/30/22 00:35 Pulse 93 08/30/22 00:35 Resp 22 H 08/30/22 00:35 BP 137/76 08/30/22 00:35 Pulse Ox 97 08/30/22 00:35 O2 Del Method Room Air 08/30/22 00:35 BMI result Body Mass Index 24.2 Appearance: Alert. Oriented X3. In moderate distress ENT: Pharynx normal. Oral Mucosa moist Neck: Normal inspection. Neck supple. CVS: Normal heart rate and rhythm. Pulses normal. Respiratory: No respiratory distress. E Skin: Skin warm and dry. Normal skin color. Normal skin turgor. Extremities: No lower extremity edema. Neuro: Oriented X 3. Extrem: Ankle/foot/toe images: 1. Ruptured blister partial-thickness burn the right dorsum of the foot involving 2nd and 3rd digit neurovascular intact Medications Administered Discontinued Medications Generic Name Dose Route Start Last Admin Trade Name Viky PRN Reason Stop Dose Admin Oxycodone HCl 10 mg 08/30/22 01:04 08/30/22 01:21 Oxycodone Hcl Immed Release 5 Mg Tablet PO 08/30/22 01:05 10 mg ONCE ONE Administration Silver Sulfadiazine 1 appl 08/30/22 00:47 08/30/22 01:21 Silver Sulfadiazine 1 % Cream 20 Gm Tube TOPICAL 08/30/22 00:48 1 appl ONCE ONE Administration Discharge Plan Discharge Clinical Impression: Partial thickness burn of toe of right foot Patient Disposition: Home, Self-Care Instructions: Second Degree Burn (ED) Additional Instructions: Local care as advised Apply Silvadene cream twice daily heals completely Ibuprofen for pain Prescriptions: New silver sulfadiazine [Silvadene] 1 % cream 1 appl topical BID Qty: 50 0RF Rx Instructions: apply a 1.5 mm thickness ibuprofen 600 mg tablet 600 mg PO Q6H PRN (Reason: pain) Qty: 30 0RF No Action ibuprofen 800 mg tablet 800 mg PO Q8H Interventions: ED Discharge Assessment Last Done: 08/30/22 01:44 Discharge Date/Time: 08/30/22 01:45
--- OUTSIDE RECORDS SUMMARY | 2022-08-30 00:50 | XMS_ITS | Continuity of Care Document ---
Author Name Unknown Organization [facility] Address Unknown Care Team Providers Care Sausage Canner Name Role Phone Default, PCP Doctor Name Primary Care Physician Unavailable Encounter A2K Date(s): 03/27/22 - 03/27/22 [facility] [address] [place], [place] [address] Encounter Diagnosis Right ankle injury(Discharge Diagnosis) - 03/27/22 Fracture of medial malleolus of right tibia(Discharge Diagnosis) - 03/27/22 Discharge Disposition: Home Attending Physician: Edna Hylton MD Admitting Physician: Edna Hylton MD Allergies, Adverse Reactions, Alerts No Known Medication Allergies Assessment and Plan Extracted from: Title:ED Physician Note Author:Edna Hylton Cla, MD Date:03/27/22 Patient Education Crutches, How to Use Ankle Fracture Follow Up With When Contact Information Liborio Nugent MD, Orthopedic Surgery Within 2 to 4 days (krause) [address] [place] [address]- [phone] ?? Additional Instructions: Assessment/Plan Fracture of medial malleolus of right tibia Right ankle injury Orders: acetaminophen-HYDROcodone, 1 tab(s) PO (oral) Once, Form: Tab ibuprofen, 600 mg PO (oral) Once, Form: Tab Immobilizer Ortho Treatment Instructions Vital Signs Most recent to oldest [Reference Range]: 1 Calculated Height (cm) 167.64 cm (03/27/22 9:03 PM) Measured Weight (kg) 73.7 kg (03/27/22 9:03 PM) Body Mass Index (kg/m2) 26.22 kg/m2 (03/27/22 9:03 PM) Blood Pressure 97/86mmHg (03/27/22 10:40 PM) Peripheral Pulse Rate 67 bpm (03/27/22 10:40 PM) Mean Arterial Pressure [70-100 mmHg] 89. 7 mmHg (03/27/22 10:40 PM) Temperature Oral (DegC) 37.0 DegC 1 (03/27/22 10:40 PM) Temperature Oral (DegF) 98.6 DegF (03/27/22 10:40 PM) 1Result Comment: Calculated by Discern Expert rule Social History Social History Type Response Sex Male Hospital Discharge Instructions Patient Education 03/27/2022 22:41:32 Crutches, How to Use Using Crutches Safely When kids can't put weight on a leg because of injury or surgery, crutches can help them get aroundand stay independent. It's important to use crutches correctly to prevent falls and more injury. Review these tips with your child as a reminder of what you learned during your visit. To help your child use crutches safely: ??? Make sure all pads and telesales specialist on the crutches are securely in place and all hardware is tight. ??? To prevent falls, remove small, loose rugs from floors in the house. Your child should follow these safety guidelines while using crutches: Be sure to: ??? Wear snug, non-slip shoes. Don't wear flip-flops or other loose shoes that can cause falls. ??? Hold your weight up with your hands on the handgrips. Do not put your weight on your armpits. ??? If wearing a backpack, keep it on both shoulders to help with balance. ??? Do not put weight on your injured leg unless your health care provider says it's OK. ??? Check your balance after each step. ??? Have someone around to help if you need it. ??? Take your time and go slowly. ??? Watch out for small pets around your feet. ??? Be especially careful on ramps, uneven ground, and wet surfaces. To walk with crutches: ??? Hold the crutches gently against your sides. ??? Put the crutch tips on the ground ahead of you about 6-12 inches. ??? If you are allowed to put weight on your injured leg, gently step forward with your injured leg. Then push down on the handgrips and step forward with your good leg. ??? If you are not allowed to put weight on your injured leg, push down on the handgrips and step forward with your good leg. ??? Repeat. To sit in a chair: ??? Turn your back to the chair. ??? Walk backward until your legs touch the chair. ??? Hold both crutches on your good side. ??? Reach back with your free arm and grasp armrest or seat. ??? Slowly lower yourself to the chair. To get up from a chair: ??? Hold both crutches on your good side. ??? Sit on the front edge of the chair. ??? Put your free hand on the arm of the chair. Push against it to stand up. ??? Put one crutch under each arm. To use stairs: ??? If there is a handrail, use one crutch and the handrail. (Someone else should carry the other crutch.) ??? If there is no handrail, hold one crutch on each side. ??? To go up stairs: ? Keep your weight on your hands as you lift your good foot onto the first step. ? Bring your crutch(es) and the injured leg to the same step. ??? To go down stairs: ? Stand close to the edge of the step. ? Slowly bring the crutches and your injured leg down one step. ? Keep your weight on the crutches and your hips under your shoulders as you step down. Do notlean forward. ? Bring your good foot down to the same step. ??? Your child has pain, weakness, or a burning sensation in the arms. ??? The crutch tips wear out or the crutches seem loose or broken. ?? 2021 [employer]??.Used and adapted under license by your health care provider. This information is for general use only. For specific medical advice or questions, consult your health patient care. [id number] 03/27/2022 22:41:29 Ankle Fracture Ankle Fracture The ankle joint is made up of the lower (distal) sections of the lower leg bones, called the tibia and fibula, along with a bone in the foot called the talus. An ankle fracture is a break in one, two, or all three of these sections of bone. There are two general types of ankle fractures: ??? Stable fracture. This happens when one of the bones is broken, but the bones of the ankle jointstay in their normal positions. ??? Unstable fracture. This type can include more than one broken bone. It can also happen if the outer bone is broken and the strong tissues that connect bones to each other (ligaments) are also injured at the inner ankle. This type of fracture allows the talus to move out of its normal position. What are the causes? This condition may be caused by: ??? A hard, direct hit to the ankle. ??? Quickly and severely twisting your ankle, often while your foot is planted and the rest of yourbody is moving. ??? Trauma, such as from a car crash or a fall from a height. What increases the risk? The following factors may make you more likely to develop this condition: ??? Being overweight. ??? Participating in sports that involve quick direction changes, as in soccer. ??? Doing high-impact sports such as gymnastics or football. What are the signs or symptoms? Symptoms of this condition include: ??? A tender and swollen ankle. ??? Bruising around your injured ankle. ??? Pain when moving or pressing on your ankle. ??? Trouble walking or using your ankle to support your body weight (putting weight on your ankle). ??? Pain that gets worse when you move your foot or ankle or when you stand. ??? Pain that gets better with rest. How is this diagnosed? An ankle fracture is usually diagnosed with a physical exam and X-rays. You may also have a CT scanor an MRI. How is this treated? Treatment for this condition depends on the type of ankle fracture you have. Stable fractures are treated with a cast, boot, or splint to hold the ankle still and crutches to avoid putting weight on the ankle until the fracture heals. Unstable fractures require surgery to ensure that the bones healproperly. After surgery, you will have a splint. After your incision has healed, your surgeon may give you a cast or a boot. You will not be able to put weight on your injured side for several weeks. After your ankle has healed, you will do physical therapy exercises to improve movement and strength in your ankle. Follow these instructions at home: If you have a boot or splint: ??? Wear the boot or splint as told by your health care provider. Remove it only as told by your health care provider. ??? Loosen it if your toes tingle, become numb, or turn cold and blue. ??? Keep it clean and dry. If you have a cast: ??? Do not put pressure on any part of the cast until it is fully hardened. This may take several hours. ??? Do not stick anything inside the cast to scratch your skin. Doing that increases your risk of infection. ??? Check the skin around the cast every day. Tell your health care provider about any concerns. ??? You may put lotion on dry skin around the edges of the cast. Do not put lotion on the skin underneath the cast. ??? Keep it clean and dry. Bathing ??? Do not take baths, swim, or use a hot tub until your health care provider approves. Ask your health care provider if you may take showers. You may only be allowed to take sponge baths. ??? If the cast, boot, or splint is not waterproof: ??? Do not let it get wet. ??? Cover it with a watertight covering when you take a bath or shower. Managing pain, stiffness, and swelling ??? If directed, put ice on the injured area. To do this: ??? If you have a removable splint or boot, remove it as told by your health care provider. ??? Put ice in a plastic bag. ??? Place a towel between your skin and the bag or between your cast and the bag. ??? Leave the ice on for 20 minutes, 2???3 times a day. ??? Remove the ice if your skin turns bright red. This is very important. If you cannot feel pain, heat, or cold, you have a greater risk of damage to the area. ??? Move your toes often to reduce stiffness and swelling. ??? Raise (elevate) the injured area above the level of your heart while you are sitting or lying down. Activity ??? Do exercises as told by your health care provider. ??? Return to your normal activities as told by your health care provider. Ask your health care provider what activities are safe for you. ??? Do not use the injured limb to support your body weight until your health care provider says that you can. Use crutches as told by your health care provider. General instructions ??? Take uden-[id number] and prescription medicines only as told by your health care provider. ??? Ask your health care provider when it is safe to drive if you have a cast, boot, or splint on your ankle. ??? Do not use any products that contain nicotine or tobacco, such as cigarettes, e-cigarettes, andchewing tobacco. These can delay bone healing. If you need help quitting, ask your health care provider. ??? Keep all follow-up visits. This is important. Contact a health care provider if: ??? You have pain or swelling that gets worse or does not get better with rest or medicine. ??? Your cast gets damaged. Get help right away if: ??? You have severe pain that lasts. ??? You develop new pain or swelling. ??? Your skin or toenails below the injury turn blue or daley, feel cold, become numb, or are less sensitive to the touch. Summary ??? An ankle fracture can be stable or unstable. This is determined after a physical exam and imaging studies such as X-rays, a CT scan, or an MRI. ??? Stable fractures are treated with a cast, boot, or splint to hold the ankle still until the fracture heals. Unstable fractures require surgery to ensure that the bones heal properly. ??? You will not be able to put weight on your injured side for several weeks. ??? Medicines, icing, and raising (elevating) your injured ankle when you are sitting or lying downmay help with pain relief. Follow instructions as told by your health care provider. This information is not intended to replace advice given to you by your health care provider. Make sure you discuss any questions you have with your health care provider. Document Revised: 08/03/2020 Document Reviewed: 08/03/2020 [employer] Patient Education ?? 2021 [employer] Follow Up Care 03/27/2022 21:02:20 With:Liborio Nugent MD, Orthopedic Surgery Address: [address] [place], [place] [address] [place] [address]- [phone] When:2 to 4 days (krause) Patient Care team information Personnel Name: Default , PCP Doctor Name
[2022-08-30] MEDS: Silver Sulfadiazine 1 % Cream 20 GM TUBE 1 APPL TOPICAL (01:21)
[2022-08-30] MEDS: oxyCODONE HCl Immed Release 5 MG TABLET 10 MG PO (01:21)
== END 2022-08-30 01:45 | disposition home or self-care (01) ==
PROVIDERS: Emergency Provider Internal Medicine
DX: T25.231A Burn of second degree of right toe(s) (nail), initial encounter (principal); X12.XXXA Contact with other hot fluids, initial encounter; Y93.89 Activity, other specified; Y92.812 Truck as the place of occurrence of the external cause; Y99.9 Unspecified external cause status; F17.200 Nicotine dependence, unspecified, uncomplicated
CPT/HCPCS: 99283

== ENCOUNTER 2022-09-04 20:53 | Emergency (ER) | payer MEDICAID, SELFPAY ==
[2022-09-04 21:08] VITALS: BP 99/48; PULSE 71; RESP 20; TEMP 37.3; O2SAT 99; BMI 24.2
--- NOTE | 2022-09-04 21:51 | PC.NURSE ---
I elevated pt's foot. Dressed it with bacitracin, a non--adherent dressing, and an lucy wrap to help decrease swelling. Pt is now resting comfortably in bed.
--- NOTE | 2022-09-04 22:02 | ED_ITS ---
HPI - Burn/Smoke Inhalation General Chief complaint: Burn/Smoke Inhalation Stated complaint: antonio on r leg Time Seen by Provider: 09/04/22 21:16 Source: patient Mode of arrival: ambulatory History of Present Illness HPI Narrative: This is a 37-year-old male who spilled hot water onto his right foot on Friday is had increasing pain, swelling and redness since that time. He denies any issues with diabetes and denies any fevers or chills. Related Data Home Medications Medication Instructions Recorded Confirmed ibuprofen 800 mg tablet 800 mg PO Q8H 04/21/22 04/21/22 Previous Rx's Medication Instructions Recorded ibuprofen 600 mg tablet 600 mg PO Q6H PRN pain #30 tabs 08/30/22 silver sulfadiazine 1 % topical 1 appl topical BID #50 grams 08/30/22 cream (Silvadene) amoxicillin 875 mg-potassium 1 tab PO BID 5 days #10 tabs 09/04/22 clavulanate 125 mg tablet Allergies Allergy/AdvReac Type Severity Reaction Status Date / Time No Known Allergies Allergy Verified 05/06/22 14:24 Review of Systems Review of Systems: Pertinent positives and negatives as stated in HPI [facility] Past Medical History Source: nursing notes reviewed Medical History Collar bone fracture Surgical History H/O shoulder surgery Social History Social History Alcohol intake: never Patient Tobacco Use Status: Current everyday Tobacco user Smoked in Last 30 Days: No Use of substances other than those prescribed or required for medical reasons: No Advance Directives: No Advance Directives Information Provided: No Current occupational status: unemployed Physical Exam Vital Signs: Vital Signs: Last Vital Signs Temp 99.2 F 09/04/22 21:08 Pulse 71 09/04/22 21:08 Resp 20 09/04/22 21:08 BP 99/48 L 09/04/22 21:08 Pulse Ox 99 09/04/22 21:08 O2 Del Method Room Air 09/04/22 21:08 BMI result Body Mass Index 24.2 VITAL SIGNS: Reviewed. GENERAL: Well developed, well nourished, in no acute distress. HEAD: Normocephalic/atraumatic EYES: PERRLA, EOMI EARS: Ext canals without abnormality NOSE: Nares patent bilateral OROPHARYNX: no oral lesions noted, posterior pharynx clear NECK: Supple, no adenopathy LUNGS: Normal breath sounds. No adventitious sounds or accessory muscle use. SpO2<99> CARDIOVASCULAR: Regular rate and rhythm without noted murmurs ABDOMEN: Soft, non-tender, non-distended with bowel sounds. MUSCULOSKELETAL: No tenderness, deformities, or effusions noted on gross inspection. EXTREMITIES: No cyanosis, clubbing or edema; RIGHT FOOT: There is an approximate 4.5 cm second-degree burn on the dorsum of right foot that extends onto the dorsal aspect of multiple toes with mild swelling and erythema of the foot itself SKIN: Inspection of the skin reveals no rashes NEUROLOGIC: Alert and oriented x 4. Strength and sensation to light touch were grossly intact x 4. Medical Decision Making Medical Decision Making MDM Narrative: 37-year-old male without history of diabetes and no fever or chills but with erythema and swelling of the right foot status post second-degree burn to the dorsal aspect. Does not appear infected, but will provide prophylactic antibiotics as well application of bacitracin an Steven wrap to help in suspected pressure related pain. Patient will also receive a referral to follow-up with the [facility]. Differential Diagnosis Please see the discussion above External Record Review External record reviewed: Prior outpatient labs Discharge Plan Discharge Clinical Impression: Burn of second degree of right foot, initial encounter Patient Disposition: Home, Self-Care Instructions: Bacitracin (On the skin), High Protein Diet (ED), Second Degree Burn (ED) Additional Instructions: 1. Daily: Cleanse gently with warm soap and water, blot dry, apply copious amounts of antibiotic ointment (this should be available [id number] and any [facility]), apply nonstick gauze and then reapply the Steven wrap. Do not wear shoes which cover the wound. 2. Please complete the antibiotics as prescribed 3. Follow-up with the [facility] for continued management of your wound until it is fully healed. 4. Please follow-up with your primary care provider in the next 1-2 days. Return to the ER for any worsening symptoms. Prescriptions: New amoxicillin-pot clavulanate 875-125 mg tablet 1 tab PO BID 5 Days Qty: 10 0RF No Action silver sulfadiazine [Silvadene] 1 % cream 1 appl topical BID Qty: 50 0RF Rx Instructions: apply a 1.5 mm thickness ibuprofen 600 mg tablet 600 mg PO Q6H PRN (Reason: pain) Qty: 30 0RF ibuprofen 800 mg tablet 800 mg PO Q8H Referrals: Vinicius Shell MD [Primary Care Provider] - [facility] [Outside] (2nd degree wound to right foot dorsum.)
[2022-09-04] MEDS: Bacitracin Oint 0.9 GM PACKET 1 APPL TOPICAL (22:05)
[2022-09-04] MEDS: Amoxicillin/Potassium Clav 875 MG TABLET PO (22:15)
[2022-09-04] MEDS: Ibuprofen 400 MG TABLET PO (22:21)
[2022-09-04] MEDS: Acetaminophen 325 MG TABLET 975 MG PO (22:21)
== END 2022-09-04 22:24 | disposition home or self-care (01) ==
PROVIDERS: Emergency Provider Student in an Organized Health Care Education/Training Program; PCP Internal Medicine
DX: T25.221A Burn of second degree of right foot, initial encounter (principal); T31.0 Burns involving less than 10% of body surface; M79.671 Pain in right foot; X12.XXXA Contact with other hot fluids, initial encounter; Y93.9 Activity, unspecified; Y92.9 Unspecified place or not applicable; Y99.9 Unspecified external cause status
CPT/HCPCS: 16020; 99283; 99284

== ENCOUNTER 2023-04-30 12:18 | Emergency (ER) | payer MEDICAID, SELFPAY ==
[2023-04-30 12:31] VITALS: BP 119/60; PULSE 64; RESP 18; TEMP 36.4; O2SAT 99; BMI 23.6
--- NOTE | 2023-04-30 12:31 | ED_ITS ---
HPI - Dental/Oral General Chief complaint: Dental/Oral Stated complaint: Swelling in face Time Seen by Provider: 04/30/23 14:01 Source: patient Mode of arrival: ambulatory Limitations: no limitations History of Present Illness HPI Narrative: Patient is a 37 year old assigned male at with no reported medical history presenting to the emergency department today with dental pain. Patient states that his upper left side of his mouth has had some drainage from a swollen spot and pain. Patient denies any dizziness, lightheadedness, abdominal pain, nausea, vomiting, fever, chills, blurry vision, double vision, loss of vision, chest pain, difficulty breathing, shortness of breath, back pain, night sweats, pain with urination, increased urinary frequency, increased urinary urgency, blood in his urine or stool, syncope or a near syncopal episode, recent trauma or falls, bowel incontinence, bladder incontinence, bowel retention, bladder retention, or any other complaints at this time. Teeth map: 2 1. small area of erythema, swelling, and fluctuance - consistent with abscess Onset (ago): day(s) Duration: constant Severity: mild Severity scale (1-10): 3 Relieving factors: nothing Exacerbating factors: nothing Treatment prior to arrival: none Related Data Home Medications Medication Instructions Recorded Confirmed ibuprofen 800 mg tablet 800 mg PO Q8H 04/21/22 04/21/22 Previous Rx's Medication Instructions Recorded ibuprofen 600 mg tablet 600 mg PO Q6H PRN pain #30 tabs 08/30/22 silver sulfadiazine 1 % topical 1 appl topical BID #50 grams 08/30/22 cream (Silvadene) amoxicillin 875 mg-potassium 1 tab PO BID 5 days #10 tabs 09/04/22 clavulanate 125 mg tablet chlorhexidine gluconate 0.12 % 15 ml buccal BID #118 mL 04/30/23 mouthwash (Peridex) penicillin V potassium 500 mg 500 mg PO BID 10 days #20 tabs 04/30/23 tablet Allergies Allergy/AdvReac Type Severity Reaction Status Date / Time No Known Allergies Allergy Verified 04/30/23 12:30 Review of Systems 2 Constitutional: Constitutional: Reports no additional constitutional complaints, Denies chills, Denies fever(s) and Denies night sweats Eyes: Eyes: Reports no additional eye complaints, Denies blurry vision, Denies change in vision, Denies diplopia, Denies eye discharge, Denies loss of vision and Denies eye pain ENT: Denies dizziness and Reports mouth pain Cardiovascular: Cardiovascular: Reports no additional cardiovascular complaints, Denies chest pain, Denies lightheadedness, Denies Loss of Consciousness and Denies dyspnea Respiratory: Respiratory: Reports no additional respiratory complaints and Denies dyspnea Gastrointestinal: Gastrointestinal: Reports no additional gastrointestinal complaints, Denies abdominal pain, Denies melena, Denies hematochezia, Denies change in bowel habits and Denies change in stool character Genitourinary: Genitourinary: Reports no additional male genitourinary complaints, Denies hematuria, Denies oliguria, Denies difficulty urinating, Denies dysuria, Denies urinary frequency, Denies urinary hesitancy, Denies urinary incontinence and Denies urinary urgency Musculoskeletal: Musculoskeletal: Reports no additional musculoskeletal complaints, Denies numbness and Denies tingling Neurologic: Denies dizziness, Denies loss of vision, Denies numbness and Denies tingling Psychiatric: Psychiatric: Reports no additional psychiatric complaints Endocrine: Endocrine: Reports no additional endocrine complaints Hematologic/Lymphatic: Hematologic/Lymphatic: Reports no additional hematologic/lymphatic complaints Allergic/Immunologic: Allergic/Immunologic: Reports no additional allergic/immunologic complaints PMFSH Past Medical History Attestation statement: The following information was validated with the patient. Source: old records reviewed and nursing notes reviewed Medical History Collar bone fracture Surgical History H/O shoulder surgery Social History Social History Alcohol intake: never Patient Tobacco Use Status: Current everyday Tobacco user Advance Directives: No Advance Directives Information Provided: No Current occupational status: unemployed Physical Exam 2 Vital Signs: Vital Signs: Last Vital Signs Temp 98.7 F 04/30/23 15:26 Pulse 63 04/30/23 15:26 Resp 16 04/30/23 15:26 BP 124/63 04/30/23 15:26 Pulse Ox 100 04/30/23 15:26 O2 Del Method Room Air 04/30/23 15:26 BMI result Body Mass Index 23.6 Const: General: cooperative, no acute distress, alert and awake Nutritional Appearance: well nourished Orientation/consciousness: patient oriented x3 Limitations: no limitations HEENT: Head: Yes normal to inspection and Yes atraumatic Ears: hearing grossly normal bilaterally and external ears normal General nose exam: Normal external nose present, no nasal discharge noted and no epistaxis Face and sinus: Yes normal facial exam, No abrasion and No laceration Mouth: Normal oral and palatal mucosa present, no drooling and no muffled voice Teeth image: 1. small area of erythema, swelling, and fluctuance consistent with abscess Eyes: General: appearance normal, both eyes and all related structures P eriorbital: periorbital findings normal Eyelids: Yes eyelids normal C onjunctivae: conjunctivae normal Pupils: Equal, round and reactive pupils present EOM: EOMs intact bilaterally Neck: Neck: Yes normal visual inspection, Yes full ROM and Yes no lymphadenopathy Chest: Chest palpation & inspection: normal inspection of the chest Resp: Effort & Inspection: normal respiratory effort and able to speak in complete sentences GI: Inspection: Yes normal to inspection Neuro: General: patient oriented x3 and moves all extremities Cranial nerves: Yes Equal, round and reactive pupils present Cognition (Neuro): n ormal cognition Motor exam (neuro): 5/5 motor strength present throughout Sensory Exam: Normal double simultaneous stimulation for sensation C oordination: [id number] test normal Extrem: General: Yes normal to inspection, Yes full ROM and Yes capillary refill normal Psych: Appearance: grossly normal Mental Status: mental status grossly normal Affect: normal affect Attitude: cooperative Thought process: N ormal thought process present Thought content: Normal thought content present Insight: Good insight present (Psych) Course Course Course Narrative: RME: 37yo M w/no sig PMHx c/o L upper dental pain and swelling x yesterday. +slight drainage + pointing dental abscess noted to upper gum will need I&D Full HPI, ROS and PE to be performed by primary ED provider. Medical Decision Making Medical Decision Making MDM Narrative: Patient is a 37 year old assigned male at with no reported medical history presenting to the emergency department today with a dental abscess. Patient's physical exam was as noted in the physical exam portion of this note. I explained my physical exam findings to the patient. I answered all questions asked by the patient. Patient's abscess was incised and drained, without incident. I stressed the importance of the patient taking his medication as prescribed. I stressed the importance of the patient following up with his primary care provider and a dentist. I stressed the importance of the patient returning to the emergency department immediately if his symptoms were to worsen or if he were to develop any dizziness, shortness of breath, difficulty breathing, chest pain, blurry vision, loss of vision, nausea, vomiting, abdominal pain, fever, chills, back pain, or any other complaints. Patient verbalized agreement and understanding with this treatment plan and discharge. Differential Diagnosis Differential Diagnoses: The differential diagnosis associated with the presentation includes Dental abscess Prescription Management I considered prescription management with: Antibiotic (patient prescribed an antibiotic for dental abscess) Procedures Abscess I/D Site: oral Side (if applicable): left Local Anesthetic: other anesthetic (topical anesthetic from dental box) Technique: needle aspiration Amount of fluid expressed (mL): 5 Sent for culture/gram staining?: No Packing used?: none Discharge Plan Discharge Clinical Impression: Dental abscess Patient Disposition: Home, Self-Care Instructions: Dental Abscess (ED), Abscess Incision and Drainage (DC) Additional Instructions: The area we incised may continue to drain. Please do not swallow what drains into your mouth. Spit it out. Follow up with your primary care provider and a dentist. Return to the emergency department immediately if your symptoms worsen or if you develop any dizziness, shortness of breath, difficulty breathing, chest pain, blurry vision, loss of vision, nausea, vomiting, abdominal pain, fever, chills, back pain, or any other complaints. Call or visit any of the clinics below to establish with a dentist: [facility] [address] [place] [address] [facility] [address] [facility], [address] [address] [place] [id number] [facility] [address] [place] [id number] [facility] [address] [place] [address] [place] [facility] [place] [address] Prescriptions: New penicillin V potassium 500 mg tablet 500 mg PO BID 10 Days Qty: 20 0RF chlorhexidine gluconate [Peridex] 0.12 % mouthwash 15 ml buccal BID Qty: 118 0RF No Action silver sulfadiazine [Silvadene] 1 % cream 1 appl topical BID Qty: 50 0RF Rx Instructions: apply a 1.5 mm thickness ibuprofen 600 mg tablet 600 mg PO Q6H PRN (Reason: pain) Qty: 30 0RF amoxicillin-pot clavulanate 875-125 mg tablet 1 tab PO BID 5 Days Qty: 10 0RF ibuprofen 800 mg tablet 800 mg PO Q8H Referrals: [facility] [Primary Care Provider] - Stand Alone Forms: Work/School Release Interventions: ED Discharge Assessment Last Done: 04/30/23 15:26 Discharge Date/Time: 04/30/23 15:26 Print Language: Algerian
[2023-04-30 15:26] VITALS: BP 124/63; PULSE 63; RESP 16; TEMP 37.1; O2SAT 100
== END 2023-04-30 15:26 | disposition home or self-care (01) ==
PROVIDERS: Emergency Provider Student in an Organized Health Care Education/Training Program
DX: K04.7 Periapical abscess without sinus (principal); K08.89 Other specified disorders of teeth and supporting structures; F17.200 Nicotine dependence, unspecified, uncomplicated
CPT/HCPCS: 10160; 99282; 99284

== ENCOUNTER 2023-08-26 16:22 | Emergency (ER) | payer MEDICAID, SELFPAY ==
--- NOTE | 2023-08-26 17:20 | ED.DENTAL ---
HPI - Dental/Oral General Chief complaint: Dental/Oral Stated complaint: tooth abscess Time Seen by Provider: 08/26/23 17:23 Source: patient and RN notes reviewed Mode of arrival: ambulatory Limitations: no limitations History of Present Illness HPI Narrative: 38 year old male with no significant pmhx presents to the ED today for evaluation of dental pain which began last night. Pain is localized to the left upper teeth. Endorses broken tooth in this area. He does not currently have a dentist. Endorses history of tooth extractions and dental abscesses. Denies fever,, chills, jaw pain/ difficulty opening his mouth, dysphagia or odynophagia. MD Complaint: tooth pain Related Data Home Medications ?Medication ?Instructions ?Recorded ?Confirmed ibuprofen 800 mg tablet 800 mg PO Q8H 04/21/22 04/21/22 Previous Rx's ?Medication ?Instructions ?Recorded ibuprofen 600 mg tablet 600 mg PO Q6H PRN pain #30 tabs 08/30/22 silver sulfadiazine 1 % topical 1 appl topical BID #50 grams 08/30/22 cream (Silvadene) amoxicillin 875 mg-potassium 1 tab PO BID 5 days #10 tabs 09/04/22 clavulanate 125 mg tablet chlorhexidine gluconate 0.12 % 15 ml buccal BID #118 mL 04/30/23 mouthwash (Peridex) penicillin V potassium 500 mg 500 mg PO BID 10 days #20 tabs 04/30/23 tablet amoxicillin 875 mg-potassium 1 tab PO Q12H 7 days #14 tabs 08/26/23 clavulanate 125 mg tablet tramadol 50 mg tablet 50 mg PO Q8H PRN pain (scale score 08/26/23 7-10) #6 tabs Allergies Allergy/AdvReac Type Severity Reaction Status Date / Time No Known Allergies Allergy Verified 08/26/23 17:22 Review of Systems Review of Systems: Constitutional: No fever, chills, fatigue, night sweats, weight changes ENT/Mouth: No ear pain, hearing loss, nasal congestion, sinus pain, rhinorrhea, sore throat, +dental pain Eyes: No eye pain, swelling, redness, vision changes, discharge Cardio: No chest pain, palpitations, JEAN, orthopnea, peripheral edema Pulm: No SOB, cough, sputum, wheezing, dyspnea, hemoptysis GI: No nausea, vomiting, hematemesis, abdominal pain, diarrhea, constipation, hematochezia, melena : No irregular bleeding, dysuria, frequency, urgency, hesitancy, hematuria, flank pain, urinary flow changes, urinary incontinence or retention MSK: No back pain, neck pain, joint pain, myalgias Skin: No lesions, rashes Neuro: No weakness, numbness, paresthesias, LOC, dizziness, headache Psych: No anxiety/panic, depression, SI/HI, AH/VH All other systems reviewed and are negative. [facility] Past Medical History Attestation statement: The following information was validated with the patient. Source: old records reviewed and nursing notes reviewed Medical History Collar bone fracture Surgical History H/O shoulder surgery Social History Social History Alcohol intake: never Patient Tobacco Use Status: Current everyday Tobacco user Advance Directives: No Advance Directives Information Provided: No Current occupational status: unemployed Physical Exam Vital Signs: Vital Signs: Last Vital Signs Temp 97.6 F 08/26/23 17:21 Pulse 84 08/26/23 17:21 Resp 16 08/26/23 17:21 BP 109/64 08/26/23 17:21 Pulse Ox 97 08/26/23 17:21 O2 Del Method Room Air 08/26/23 17:21 BMI result Body Mass Index 21.4 Vital signs stable, afebrile. Const: General: cooperative, comfortable and no acute distress Orientation/consciousness: patient oriented x3 Limitations: no limitations HEENT: Other: + No facial edema. Tongue and lips wnl + multiple dental caries and poor dentition. left upper incisor with localized periapical swelling to the buccal ginginva. No pointing. No active bleeding/ discharge. TTP. No palpable fluctuance. + No edema to buccal mucosa + Posterior oropharynx without erythema/edema. Uvula midline. Controlling secretions and speaking in complete sentences + No submandublar or submental LAD + No cervical LAD + no anterior neck swelling Head: Yes normal to inspection, Yes No palpable skull fracture present, Yes normocephalic and Yes atraumatic Ears: hearing grossly normal bilaterally, external ears normal, TM's normal bilaterally, EAC's normal, mastoids normal and no periauricular adenopathy Teeth image: 1. Eyes: General: appearance normal, both eyes and all related structures Conjunctivae: conjunctivae normal Sclerae: sclerae normal Pupils: Equal, round and reactive pupils present Neck: Neck: Yes normal visual inspection and Yes no lymphadenopathy Resp: Effort & Inspection: normal respiratory effort and no stridor Auscultation: clear to auscultation bilaterally Cardio: Rate: regular rate Rhythm: regular rhythm Skin: General skin exam: no rashes or lesions noted Neuro: General: patient oriented x3 and gait normal Cranial nerves: Yes Equal, round and reactive pupils present Course Course Course Narrative: 1729-- physical exam consistent with dental infection. no obvious abscess. augmentin sent to pharmacy. dentist referral provided. Patient has remained stable throughout ED visit today. Discussed worrisome signs and symptoms and when to return to the ED. All questions answered at this time. Patient is agreeable with disposition and stable for discharge. Medical Decision Making Medical Decision Making [facility] Narrative: 38 year old male with no significant pmhx presents to the ED today for evaluation of dental pain which began last night. Vital signs stable. He is nontoxic appearing and in NAD. No facial edema. Tongue and lips wnl. multiple dental caries and poor dentition. left upper incisor with localized periapical swelling to the buccal ginginva. No pointing. No active bleeding/ discharge. TTP. No palpable fluctuance. No edema to buccal mucosa. Posterior oropharynx without erythema/edema. Uvula midline. Controlling secretions and speaking in complete sentences. No submandublar or submental LAD. No cervical LAD. no anterior neck swelling Differential includes dental/ periapical abscess/infection, apthous stomatitis. Unlikely mono, herpes, sialadenitis, sialolithiasis, [employer], retropharyngeal abscess, deep neck infection, osteomyelitis, facial cellulitis/ abscess, lymphoma. Plan for pain control and discharge home with antibiotics and dentist follow up. Differential Diagnosis Differential Diagnoses: The differential diagnosis associated with the presentation includes as above. Admission/Observation Not indicated. Tests considered The following testing was considered but not selected: I considered obtaining a CT of the soft tissues neck however these is no evidence of ludwigs angina or concern for deep tissue infection. Not warranted at this time. Prescription Management I considered prescription management with: Pain Medication and Antibiotic Social Determinants Patient?s care significantly limited by Social Determinants of Health including: Other Social Determinant of Health Discharge Plan Discharge Clinical Impression: Dental abscess, Dental caries Patient Disposition: Home, Self-Care Instructions: Dental Abscess (ED), Tooth Extraction (DC) Additional Instructions: You were seen in the ED today for dental abscess. Augmentin is an antibiotic that has been sent to your pharmacy. Take this as prescribed. Do not miss any doses or finish this early as this can cause infection to return or worsen. On amoxicillin-clavulanate (augmentin), softer bowel movements are to be expected. Call your provider if you move your bowels more than 4 times a day, your bowel movements are almost all liquid, or you get a rash. Take Tylenol and ibuprofen at home for pain/discomfort. Tramadol is a controlled pain medication that has been sent to your pharmacy. Take this as needed for breakthrough pain. YOU NEED TO FOLLOW-UP WITH A DENTIST. YOU NEED TO HAVE THAT TOOTH EXTRACTED. Return with new or worsening symptoms. In the case of an emergency call 911. [facility] DENTAL: [phone] Prescriptions: New amoxicillin-pot clavulanate 875-125 mg tablet 1 tab PO Q12H 7 Days Qty: 14 0RF tramadol 50 mg tablet 50 mg PO Q8H PRN (Reason: pain (scale score 7-10)) Qty: 6 0RF No Action silver sulfadiazine [Silvadene] 1 % cream 1 appl topical BID Qty: 50 0RF Rx Instructions: apply a 1.5 mm thickness ibuprofen 600 mg tablet 600 mg PO Q6H PRN (Reason: pain) Qty: 30 0RF amoxicillin-pot clavulanate 875-125 mg tablet 1 tab PO BID 5 Days Qty: 10 0RF penicillin V potassium 500 mg tablet 500 mg PO BID 10 Days Qty: 20 0RF chlorhexidine gluconate [Peridex] 0.12 % mouthwash 15 ml buccal BID Qty: 118 0RF ibuprofen 800 mg tablet 800 mg PO Q8H Discharge Date/Time: 08/26/23 17:53 Print Language: Italian
[2023-08-26 17:21] VITALS: BP 109/64; PULSE 84; RESP 16; TEMP 36.4; O2SAT 97; BMI 21.4
== END 2023-08-26 17:53 | disposition home or self-care (01) ==
LOC: HO.ED 17:28
PROVIDERS: Emergency Provider Emergency Medicine
DX: K02.9 Dental caries, unspecified (principal); K04.7 Periapical abscess without sinus; K08.89 Other specified disorders of teeth and supporting structures
CPT/HCPCS: 99281

== ENCOUNTER 2023-12-01 06:54 | Emergency (ER) | payer MEDICAID, SELFPAY ==
--- NOTE | ~2023-12-01 | US_ITS ---
EXAMINATION: US SCROTUM CLINICAL INFORMATION: Right-sided pain. COMPARISON: None available. TECHNIQUE: A sonogram of the scrotum was performed assessing daley-scale appearance and color Doppler flow. Spectral Doppler analysis of the arterial and venous flow were performed in the testes bilaterally. FINDINGS: RIGHT: Right testicle measures 4.5 x 2.7 x 2.3 cm, volume 14.9 mL. No focal testicular parenchymal lesions are visualized. Spectral Doppler analysis of the arterial and venous flow is normal in the right testis. Right epididymal head is normal in size. No right hydrocele or varicocele is seen. Right epididymal Doppler flow is normal. LEFT: Left testicle measures 4.2 x 2 x 2.9 cm, volume 12.8 mL. No focal testicular parenchymal lesions are visualized. Spectral Doppler analysis of the arterial and venous flow is normal in the left testis. Left epididymal head is normal in size. No left hydrocele or varicocele is seen. Left epididymal Doppler flow is normal. US/US scrotum IMPRESSION: Normal scrotal ultrasound.
--- NOTE | ~2023-12-01 | US_ITS ---
EXAMINATION: US SCROTUM CLINICAL INFORMATION: Right-sided pain. COMPARISON: None available. TECHNIQUE: A sonogram of the scrotum was performed assessing daley-scale appearance and color Doppler flow. Spectral Doppler analysis of the arterial and venous flow were performed in the testes bilaterally. FINDINGS: RIGHT: Right testicle measures 4.5 x 2.7 x 2.3 cm, volume 14.9 mL. No focal testicular parenchymal lesions are visualized. Spectral Doppler analysis of the arterial and venous flow is normal in the right testis. Right epididymal head is normal in size. No right hydrocele or varicocele is seen. Right epididymal Doppler flow is normal. LEFT: Left testicle measures 4.2 x 2 x 2.9 cm, volume 12.8 mL. No focal testicular parenchymal lesions are visualized. Spectral Doppler analysis of the arterial and venous flow is normal in the left testis. Left epididymal head is normal in size. No left hydrocele or varicocele is seen. Left epididymal Doppler flow is normal. US/US scrotum doppler IMPRESSION: Normal scrotal ultrasound.
--- NOTE | ~2023-12-01 | US_ITS ---
EXAMINATION: RIGHT RENAL ULTRASOUND CLINICAL INFORMATION: Flank pain COMPARISON: CT abdomen pelvis 04/20/2015, renal ultrasound 07/07/2012 TECHNIQUE: Only the right kidney was examined. The left kidney was not examined FINDINGS: The right kidney measures 11.6 x 6.0 x 5.3 cm. And appears unremarkable without masses stones or pelvocaliectasis. US/US renal RT IMPRESSION: Normal-appearing right kidney.
[2023-12-01 06:56] VITALS: BP 106/55; PULSE 83; RESP 16; TEMP 36.8; O2SAT 100; BMI 21.7
--- NOTE | 2023-12-01 07:10 | ED.BACK ---
HPI - Back Pain/Injury General Chief Complaint: Back Pain/Injury Stated Complaint: back pain into groin area Time Seen by Provider: 12/01/23 07:01 Source: patient Mode of arrival: ambulatory Limitations: no limitations History of Present Illness ED Provider: MARGOTH CAVANAUGH Narrative: 38 yo male no PMH here with c/o 2 days atraumatic R low back pain radiating to the groin worse with movements. No associated or GI symptoms, no fevers. Has not had this before. NO b/b incontinence, no saddle anesthesia. MD elicited complaint: back pain Onset (ago): day(s) (2) Timing: constant Severity: moderate Similar Symptoms Previously: No Quality: aching Location: lumbar spine Radiation: groin Relieving factors: movement Associated symptoms: denies other symptoms Work related injury: No Related Data Home Medications ?Medication ?Instructions ?Recorded ?Confirmed ibuprofen 800 mg tablet 800 mg PO Q8H 04/21/22 04/21/22 Previous Rx's ?Medication ?Instructions ?Recorded ibuprofen 600 mg tablet 600 mg PO Q6H PRN pain #30 tabs 08/30/22 silver sulfadiazine 1 % topical 1 appl topical BID #50 grams 08/30/22 cream (Silvadene) amoxicillin 875 mg-potassium 1 tab PO BID 5 days #10 tabs 09/04/22 clavulanate 125 mg tablet chlorhexidine gluconate 0.12 % 15 ml buccal BID #118 mL 04/30/23 mouthwash (Peridex) penicillin V potassium 500 mg 500 mg PO BID 10 days #20 tabs 04/30/23 tablet amoxicillin 875 mg-potassium 1 tab PO Q12H 7 days #14 tabs 08/26/23 clavulanate 125 mg tablet tramadol 50 mg tablet 50 mg PO Q8H PRN pain (scale score 08/26/23 7-10) #6 tabs cyclobenzaprine 10 mg tablet 10 mg PO TID PRN muscle spasm #20 12/01/23 tabs Allergies Allergy/AdvReac Type Severity Reaction Status Date / Time No Known Allergies Allergy Verified 12/01/23 06:57 Review of Systems Review of Systems: Constitutional : No Weight loss, No Fever, No Chills, ENT/Mouth : No Hearing loss, No Ear Pain, No Nasal Congestion, No Sinus Pain, No Hoarseness, No sore throat, No Rhinorrhea, No Swallowing Difficulty Cardiovascular : No Chest Pain, No SOB Respiratory : No Cough, No Dyspnea Gastrointestinal : No Nausea, No Vomiting, No Diarrhea, No abdominal Pain, No Hematochezia, No Melena Genitourinary : No Dysuria, No Urinary Frequency, No Hematuria, No Urinary Incontinence, Musculoskeletal : positive back pain Skin : No Skin Lesions, No rash Neuro : No Weakness, No Numbness, No Paresthesias, no loss of bowel or bladder incontinence, no saddle anesthesia all other systems reviewed and are negative [facility] Past Medical History Attestation statement: The following information was validated with the patient. Source: old records reviewed Medical History Collar bone fracture Surgical History H/O shoulder surgery Social History Social History Alcohol intake: never Patient Tobacco Use Status: Current everyday Tobacco user Advance Directives: No Advance Directives Information Provided: No Current occupational status: unemployed Physical Exam Vital Signs: Vital Signs: Last Vital Signs Temp 98.2 F 12/01/23 06:56 Pulse 83 12/01/23 06:56 Resp 16 12/01/23 06:56 BP 106/55 L 12/01/23 06:56 Pulse Ox 100 12/01/23 06:56 O2 Del Method Room Air 12/01/23 06:56 BMI result Body Mass Index 21.7 Appearance: Alert. Oriented X3. No acute distress. Eyes: Pupils equal, round and reactive to light. ENT: Pharynx normal. Neck: Normal inspection. Neck supple. CVS: Normal heart rate and rhythm. Pulses normal. Respiratory: No respiratory distress. Breath sounds normal. Abdomen: Soft and nontender. Back: ttp along R lower lumbar paraspinal : slight ttp along spermatic cord very mild otherwise normal Skin: Skin warm and dry. Normal skin color. Normal skin turgor. Extremities: No lower extremity edema. No calf ttp Neuro: Oriented X 3. No motor deficit. No sensory deficit. SILT intact, normal gait Medications Administered Discontinued Medications Generic Name Dose Route Start Last Admin Trade Name Freq PRN Reason Stop Dose Admin Cyclobenzaprine HCl 10 mg 12/01/23 07:08 12/01/23 07:28 Cyclobenzaprine Hcl 10 Mg Tablet PO 12/01/23 07:09 10 mg ONCE ONE Administration Medical Decision Making Medical Decision Making [facility] Narrative: 38 yo male with no sig PMH here with atraumatic but reproduceable back pain no associated b/b incontinence no saddle anesthesia at this time has some groin pain as well - UA and renal US / testicular US. Flexeril ordered. Does seem more MSK in nature. No red flags on exam Differential Diagnosis Differential Diagnoses: The differential diagnosis associated with the presentation includes strain, renal colic, epididymitis Admission/Observation Consideration of admission/observation: Escalation of care including admission/observation considered UA no bacteria - normal US and Renal scan stable for DC Lab Data [facility] Lab Attestation statement: I reviewed the patient's lab results. Labs: Lab Results 12/01/23 Range/Units 07:04 Urine Color Yellow Urine Appearance Clear Urine pH 6.0 (5.0-9.0) Ur Specific [place] >= 1.030 H (1.005-1.025) Urine Protein Trace (Neg-Trace) mg/dL Urine Glucose (UA) Negative (Negative) mg/dL Urine Ketones Negative (Negative) mg/dL Urine Blood Small (1+) H (Negative) Urine Nitrite Negative (Negative) Ur Leukocyte Esterase Small (1+) H (Negative) Urine RBC 6-10 H (0-2) /HPF Urine WBC 6-10 H (0-5) /HPF Ur Squamous Epith Cells 0-2 (0-2) /HPF Urine Bacteria None Seen (None Seen) Hyaline Casts 0-2 (0-2) /LPF Independent Interpretation I performed an independent interpretation of an: Ultrasound (normal ) Radiology Impression Discussion of test interpretation with radiology: I have reviewed the radiologist's reading. External Record Review External record reviewed: Inpatient record Prescription Management I considered prescription management with: Other Discharge Plan Discharge Clinical Impression: Strain of lumbar region Patient Disposition: Home, Self-Care Instructions: Acute Low Back Pain (ED) Additional Instructions: return for worsening pain, fevers, pain with urination, weakness, numbness or any other concerns Ultrasound of scrotum and kidney normal Prescriptions: New cyclobenzaprine 10 mg tablet 10 mg PO TID PRN (Reason: muscle spasm) Qty: 20 0RF No Action silver sulfadiazine [Silvadene] 1 % cream 1 appl topical BID Qty: 50 0RF Rx Instructions: apply a 1.5 mm thickness ibuprofen 600 mg tablet 600 mg PO Q6H PRN (Reason: pain) Qty: 30 0RF amoxicillin-pot clavulanate 875-125 mg tablet 1 tab PO BID 5 Days Qty: 10 0RF penicillin V potassium 500 mg tablet 500 mg PO BID 10 Days Qty: 20 0RF chlorhexidine gluconate [Peridex] 0.12 % mouthwash 15 ml buccal BID Qty: 118 0RF amoxicillin-pot clavulanate 875-125 mg tablet 1 tab PO Q12H 7 Days Qty: 14 0RF tramadol 50 mg tablet 50 mg PO Q8H PRN (Reason: pain (scale score 7-10)) Qty: 6 0RF ibuprofen 800 mg tablet 800 mg PO Q8H Stand Alone Forms: Work/School Release Print Language: French
[2023-12-01 07:16] LABS: Appearance Urine Clear; Color Urine Yellow; Glucose Urine UA Negative (Negative); Leukocyte Esterase Urine Small (1+) (Negative); Nitrite Urine Negative (Negative); Specific Gravity - Urine >= 1.030 (1.005-1.025); UMIC TRIGGER UACC YES; Urine Blood Small (1+) (Negative); Urine Ketones Negative (Negative); Urine Protein Trace mg/dL (Neg-Trace)
[2023-12-01 07:21] LABS: Bacteria Urine None Seen (None Seen); Hyaline Casts Urine 0-2 /LPF (0-2); Squamous Epithelial Cell Urine 0-2 /HPF (0-2); UACC Culture Trigger YES
[2023-12-01] MEDS: Cyclobenzaprine HCl 10 MG TABLET PO (07:28)
--- NOTE | 2023-12-01 08:06 | PC.NURSE ---
ultrasound at bedside at this time
[2023-12-01 09:38] VITALS: BP 106/55; PULSE 83; RESP 16; TEMP 36.8; O2SAT 100
== END 2023-12-01 09:38 | disposition home or self-care (01) ==
PROVIDERS: Emergency Provider Emergency Medicine; PCP Internal Medicine
DX: S39.012A Strain of muscle, fascia and tendon of lower back, initial encounter (principal); R10.30 Lower abdominal pain, unspecified; N50.82 Scrotal pain; R10.2 Pelvic and perineal pain; X58.XXXA Exposure to other specified factors, initial encounter; Y33.XXXA Other specified events, undetermined intent, initial encounter; Y93.89 Activity, other specified; Y92.89 Other specified places as the place of occurrence of the external cause; Y99.8 Other external cause status
CPT/HCPCS: 76775; 76870; 81001; 87086; 93975; 99283; 99284

== ENCOUNTER 2024-01-11 18:01 | Emergency (ER) | payer MEDICAID, SELFPAY ==
[2024-01-11 18:15] VITALS: BP 108/58; PULSE 91; RESP 18; TEMP 36.6; O2SAT 97; BMI 22.1
--- NOTE | 2024-01-11 18:42 | ED.DENTAL ---
HPI - Dental/Oral General Chief complaint: Dental/Oral Stated complaint: Oral abscess Time Seen by Provider: 01/11/24 18:25 Source: patient Mode of arrival: ambulatory Limitations: no limitations History of Present Illness ED Provider: jennifer CAVANAUGH Narrative: Patient is a 38-year-old male presenting to the emergency with complaint of left upper dental pain and swelling. Reports has had a broken tooth in the area of pain for months. Last night he noted swelling to his gums after eating. Took ibuprofen with some relief. Denies fevers. Denies discharge or drainage. Denies sore throat or difficulty swallowing. MD Complaint: tooth pain Teeth map: 1. fractured tooth (#12), gingival erythema, swelling and fluctuance Onset (ago): hour(s) Duration: constant Severity: severe Relieving factors: NSAIDs Exacerbating factors: chewing Context: history of dental caries and poor dental care Associated symptoms: gum swelling Treatment prior to arrival: oral analgesic Related Data Home Medications ?Medication ?Instructions ?Recorded ?Confirmed ibuprofen 800 mg tablet 800 mg PO Q8H 04/21/22 04/21/22 Previous Rx's ?Medication ?Instructions ?Recorded ibuprofen 600 mg tablet 600 mg PO Q6H PRN pain #30 tabs 08/30/22 silver sulfadiazine 1 % topical 1 appl topical BID #50 grams 08/30/22 cream (Silvadene) amoxicillin 875 mg-potassium 1 tab PO BID 5 days #10 tabs 09/04/22 clavulanate 125 mg tablet chlorhexidine gluconate 0.12 % 15 ml buccal BID #118 mL 04/30/23 mouthwash (Peridex) penicillin V potassium 500 mg 500 mg PO BID 10 days #20 tabs 04/30/23 tablet amoxicillin 875 mg-potassium 1 tab PO Q12H 7 days #14 tabs 08/26/23 clavulanate 125 mg tablet tramadol 50 mg tablet 50 mg PO Q8H PRN pain (scale score 08/26/23 7-10) #6 tabs cyclobenzaprine 10 mg tablet 10 mg PO TID PRN muscle spasm #20 12/01/23 tabs amoxicillin 875 mg-potassium 1 tab PO BID #20 tabs 01/11/24 clavulanate 125 mg tablet chlorhexidine gluconate 0.12 % 15 ml buccal BID #120 mL 01/11/24 mouthwash Allergies Allergy/AdvReac Type Severity Reaction Status Date / Time No Known Allergies Allergy Verified 01/11/24 18:16 Review of Systems Review of Systems: As per HPI. Yes all other systems are reviewed and are negative Constitutional: Constitutional: Reports as per HPI [facility] Past Medical History Medical History Collar bone fracture Surgical History H/O shoulder surgery Social History Social History Alcohol intake: never Patient Tobacco Use Status: Current everyday Tobacco user Do you have a plan to hurt others: No Plan Current occupational status: unemployed Physical Exam Vital Signs: Vital Signs: Last Vital Signs Temp 97.8 F 01/11/24 18:15 Pulse 91 01/11/24 18:15 Resp 18 01/11/24 18:15 BP 108/58 L 01/11/24 18:15 Pulse Ox 97 01/11/24 18:15 O2 Del Method Room Air 01/11/24 18:15 BMI result Body Mass Index 22.1 Vital signs have been reviewed and appear to be correct. Blood pressure normal. Heart rate normal. Respiratory rate normal. Temperature normal. Oxygen saturation normal. Const: General: cooperative, healthy appearing and no acute distress Orientation/consciousness: oriented to person, oriented to place, oriented to time and patient oriented x3 Limitations: no limitations HEENT: Head: Yes normocephalic and Yes atraumatic Ears: external ears normal, TM's normal bilaterally and mastoids normal bilaterally General nose exam: Normal external nose present Face and sinus: Yes face symmetric Mouth: Normal oral and palatal mucosa present, lip normal, tongue normal, Normal salivary glands and ducts present, oropharynx normal, moist mucous membranes, no audible dysphonia, no drooling and no trismus Teeth and gingiva: abnormal tooth and associated gingiva upper left tender, with associated gingival edema, with associated gingival fluctuance and dentin fractured Throat: Yes posterior oropharynx normal, Yes tonsils normal, Yes uvula midline and No uvular edema Eyes: Pupils: Equal, round and reactive pupils present Neck: Neck: Yes normal visual inspection and Yes supple Resp: Effort & Inspection: normal respiratory effort and able to speak in complete sentences Auscultation: clear to auscultation bilaterally Cardio: Rate: regular rate Rhythm: regular rhythm Heart sounds: S1 normal heart sound present and S2 normal heart sound present GI: Palpation (GI): Soft to palpation and nontender Auscultation: normoactive bowel sounds : General: Yes no CVA tenderness Back/Spine/Pelvis: Back: no CVA tenderness Skin: General skin exam: elasticity normal and turgor normal Neuro: General: oriented to person, oriented to place, oriented to time, patient oriented x3, moves all extremities, no focal motor deficits and CN's II-XI intact bilaterally Cranial nerves: Yes Equal, round and reactive pupils present Cognition (Neuro): normal cognition Extrem: General: Yes full ROM, Yes no pedal edema and Yes no calf tenderness Psych: Mental Status: mental status grossly normal Affect: normal affect Thought process: Normal thought process present Medications Administered Discontinued Medications Generic Name Dose Route Start Last Admin Trade Name Freq PRN Reason Stop Dose Admin Amoxicillin/Clavulanate Potassium 875 mg 01/11/24 18:42 01/11/24 18:45 Amoxicillin/Potassium Clav 875 Mg Tablet PO 01/11/24 18:43 875 mg ONCE ONE Administration Medical Decision Making Medical Decision Making [facility] Narrative: Patient is a 38-year-old male presenting to the emergency with complaint of left upper dental pain and swelling. On exam patient is awake, A+Ox3, VS WNL, afebrile, normal neurological exam without focal deficits, physical exam findings as above. Given reported symptoms and physical exam findings, initial differential includes dental caries, dental infection, dental abscess. Do not suspect Robbie's angina. Physical exams consistent with abscess. Abscess drained as per procedure note. Patient tolerated well. Patient discharged on Augmentin, Peridex mouthwash, list of dental clinics. Return precautions discussed. Patient verbalized understanding of and agreement with plan. Differential Diagnosis Differential Diagnoses: The differential diagnosis associated with the presentation includes As per [facility] External Record Review External record reviewed: Inpatient record, Office record and Outpatient record Prescription Management I considered prescription management with: Antibiotic Procedures Abscess I/D Site: oral Side (if applicable): left Local Anesthetic: other anesthetic (lidocaine lollipop) Technique: needle aspiration Amount of fluid expressed (mL): 0.5 Sent for culture/gram staining?: No Irrigation: Yes Packing used?: none Discharge Plan Discharge Clinical Impression: Dental abscess Patient Disposition: Home, Self-Care Instructions: Dental Abscess (ED) Additional Instructions: You were evaluated in the emergency department today for complaint of dental pain. You are being treated for a dental infection with antibiotics. Please complete the full course of antibiotics as prescribed even if your symptoms improve. IT IS IMPORTANT THAT YOU FOLLOW UP WITH YOUR DENTIST. We recommend that you take 600 mg of ibuprofen or 650 mg Tylenol every 6 hours as needed for pain. If necessary, you can alternate these medications every 3 hours. For example, at 9:00 a.m. take Tylenol, then at noon take ibuprofen, then at 3:00 p.m. take Tylenol, etc.. You are being prescribed a mouthwash, use this as prescribed. You can also swish with warm salt water several times daily. Return to the emergency department if you develop worsening pain, swelling, difficulty swallowing, difficulty breathing, fever, or any other concerning symptoms. Call or visit any of the clinics below to establish care with a dentist: [facility] [address] [place] [address] [facility] [[email or web address]] [address] [facility] [address] [address] [facility] [address] [place] [id number] [facility] [address] [place] [address] [address] [place] [address] Prescriptions: New amoxicillin-pot clavulanate 875-125 mg tablet 1 tab PO BID Qty: 20 0RF chlorhexidine gluconate 0.12 % mouthwash 15 ml buccal BID Qty: 120 0RF No Action silver sulfadiazine [Silvadene] 1 % cream 1 appl topical BID Qty: 50 0RF Rx Instructions: apply a 1.5 mm thickness ibuprofen 600 mg tablet 600 mg PO Q6H PRN (Reason: pain) Qty: 30 0RF cyclobenzaprine 10 mg tablet 10 mg PO TID PRN (Reason: muscle spasm) Qty: 20 0RF amoxicillin-pot clavulanate 875-125 mg tablet 1 tab PO BID 5 Days Qty: 10 0RF penicillin V potassium 500 mg tablet 500 mg PO BID 10 Days Qty: 20 0RF chlorhexidine gluconate [Peridex] 0.12 % mouthwash 15 ml buccal BID Qty: 118 0RF amoxicillin-pot clavulanate 875-125 mg tablet 1 tab PO Q12H 7 Days Qty: 14 0RF tramadol 50 mg tablet 50 mg PO Q8H PRN (Reason: pain (scale score 7-10)) Qty: 6 0RF ibuprofen 800 mg tablet 800 mg PO Q8H Print Language: Malawian
[2024-01-11] MEDS: Amoxicillin/Potassium Clav 875 MG TABLET PO (18:45)
--- NOTE | 2024-01-11 18:45 | PC.NURSE ---
pt medicated per order will be discharged from triage
[2024-01-11 19:01] VITALS: BP 108/58; PULSE 91; RESP 18; TEMP 36.6; O2SAT 98
== END 2024-01-11 19:01 | disposition home or self-care (01) ==
LOC: HO.ED 18:50
PROVIDERS: Emergency Provider Emergency Medicine Emergency Medical Services; PCP Internal Medicine
DX: K04.7 Periapical abscess without sinus (principal)
CPT/HCPCS: 41800; 99282; 99284

== ENCOUNTER → 2024-01-29 14:44 | Outpatient (BNVA) | payer SELFPAY | PROVIDERS: Visit Provider Physician Assistant | DX: Z02.79 Encounter for issue of other medical certificate (principal) ==

== ENCOUNTER → 2024-02-16 11:01 | Outpatient (BNVA) | payer SELFPAY | PROVIDERS: Visit Provider Internal Medicine | DX: S39.012A Strain of muscle, fascia and tendon of lower back, initial encounter (principal); X50.0XXA Overexertion from strenuous movement or load, initial encounter | CPT/HCPCS: 99202 ==

== ENCOUNTER → 2024-02-18 09:58 | Outpatient (BNVA) | payer OTHER, SELFPAY | PROVIDERS: Visit Provider Physician Assistant | DX: S33.6XXA Sprain of sacroiliac joint, initial encounter (principal); X50.0XXA Overexertion from strenuous movement or load, initial encounter | CPT/HCPCS: 99213 ==

== ENCOUNTER → 2024-03-05 09:40 | Outpatient (BNVA) | payer OTHER, SELFPAY | PROVIDERS: PCP Internal Medicine; Visit Provider Internal Medicine | DX: S33.6XXD Sprain of sacroiliac joint, subsequent encounter (principal); X50.0XXD Overexertion from strenuous movement or load, subsequent encounter | CPT/HCPCS: 99213 ==